=== PATIENT | female | born 1950 | race African-American/Black ===

== ENCOUNTER 2017-07-21 13:57 | Inpatient (IN) | payer MEDICARE, BC ==
[2017-07-22] MEDS ORDERED: ALBUTEROL HFA 8 GM INHALER INH PRN (13:38)
[2017-07-22] MEDS ORDERED: SENNOSIDES/DOCUSATE SODIUM UD CAPSULE PO PRN (13:40)
--- NOTE | 2017-07-22 14:43 | Rehab Evaluation ---
Patient Information - Patient Information Diagnosis: deconditioning following cardiac cath Ordered Treatment: OT Evaluate and Treat Status: Initial Evaluation Past Medical/Surgical Hx: PAST MEDICAL/SURGICAL HISTORY Past Surgical History Pacemaker 2010 Hysterectomy 1975 Breast Reduction 1990 Colon Resection 1995 Angioplasty 2007 Cardiac stent 2016 Heart Cath 2008 Bilateral Eye Cataract 2009 PMH - Respiratory Hx Respiratory Disorders Yes Hx Bronchitis Yes Hx Chronic Obstructive Yes Pulmonary Disease (COPD) PMH - Cardiovascular Hx Cardiovascular Disorders Yes Hx Hypertension Yes Hx Irregular Heartbeat Yes: Unknown PMH - Neuro Hx Neurological Disorders No PMH - GI Hx Gastrointestinal Disorders Yes Hx Gastroesophageal Reflux Yes PMH - Hx Genitourinary Disorders No PMH - Endocrine Hx Endocrine Disorders Yes Hx Diabetes Yes PMH - Musculoskeletal Hx Musculoskeletal Disorders Yes Hx Arthritis Yes: back pain, chronic PMH - Psych Hx Psychiatric Problems No PMH - Hematology/Oncology Hx Hematology/Oncology Yes Disorders Premorbid Status: Detail (Pt lives with spouse in a 1 story house with basement , she stays on the 1st floor. She has 2 steps, no railings at the entrance. She has a tub/shower combination with tub seat, no grab bars and an elevated toilet seat with a grab bar across from the toilet. She was Ind with showering and dressing, spouse was responsible for home mgmt, meal prep and laundry. Pt ambulated without an assistive device and was using 2-3 liters of oxygen at home. She has a 2 wheeled walker, commode and straight cane.) Social History: Detail (Supportive spouse) Precautions: [place], Fall - Time With Patient Total Time Spent With Patient (Min): 30 Treatment Procedures: Detail (OT eval low complexity) Subjective Information - Subjective Information Per Patient, Other (Per spouse) Objective Data - Pain Pain Present: Yes (7/10 pain in left shoulder and chest) - Mental Status Patient Orientation: Oriented x3 - Visual Perception Appears within normal limits for therapeutic activities (Pt wears glasses for reading) - ROM Not within normal limits (Jim UE AROM WNL except shoulder flexion which is limited to approx. 110 degrees.) - Strength/Tone Within normal limits (Jim UE MMT 4+/5 although she reports pain with resisted left UE motion and she had increased shortness of breath with testing.) - Coordination Appears within normal limits for therapeutic activities - Transfers Independent (Ind with sit to stand from EOB) - Balance Balance Sitting: Good Balance Standing: Fair - Sensation Intact - Gait Detail (Pt ambulated in hallway with CG assist and 3 liters of oxygen. She became short of breath with ambulation.) - ADL's/IADL's Detail (Pt reports she is able to dress self although she is very slow due to fatigue. She has been unable to shower.) Therapy Assessment - Therapy Assessment Detail (Pt presents with decreased Ind with self cares and decreased endurance for ADLs and functional mobility.) Problem List - Problem List Occupational Therapy Problem List: Detail (1. Decreased Ind with showering/ dressing activity tolerance. 2. Decreased endurance for functional mobility and ADLs.) Goals - Goals Occupational Therapy Goals: 1. Pt will be safe and Ind with total body dressing using energy conservation techniques. 2. Pt will be safe and Ind with showering in sitting using energy conservation techniques. 3. Pt will demonstrate improved endurance to allow safe and Ind functional mobiity and ADLs. Prognosis - Prognosis Good Plan - Plan Occupational Therapy Plan: OT 2-4 times per week to address safety, Ind and activity tolerance to allow safe return home with spouse.
--- NOTE | 2017-07-22 14:45 | Rehab Evaluation ---
Patient Information - Patient Information Diagnosis: Deconditioning following cath. Ordered Treatment: PT Evaluate and Treat Status: Initial Evaluation History: Detail (The patient underwent a cath. for placement of a stent @ [facility] . The patient was admitted to [facility] 2 after discharge from [facility] with complaints of chest pain . The patient was transferred to [facility] Swing Bed unit for Rehab.) Past Medical/Surgical Hx: PAST MEDICAL/SURGICAL HISTORY Past Surgical History Pacemaker 2010 Hysterectomy 1975 Breast Reduction 1990 Colon Resection 1995 Angioplasty 2007 Cardiac stent 2015 Heart Cath 2007 Bilateral Eye Cataract 2008 PMH - Respiratory Hx Respiratory Disorders Yes Hx Bronchitis Yes Hx Chronic Obstructive Yes Pulmonary Disease (COPD) PMH - Cardiovascular Hx Cardiovascular Disorders Yes Hx Hypertension Yes Hx Irregular Heartbeat Yes: Unknown PMH - Neuro Hx Neurological Disorders No PMH - GI Hx Gastrointestinal Disorders Yes Hx Gastroesophageal Reflux Yes PMH - Hx Genitourinary Disorders No PMH - Endocrine Hx Endocrine Disorders Yes Hx Diabetes Yes PMH - Musculoskeletal Hx Musculoskeletal Disorders Yes Hx Arthritis Yes: back pain, chronic PMH - Psych Hx Psychiatric Problems No PMH - Hematology/Oncology Hx Hematology/Oncology Yes Disorders Premorbid Status: Detail (The patient was ambulatory household distances without device with use of O2.) Social History: Detail (The patient lives with spouse in a one story home with a basement with 2 steps without a railing at the enterance. The patient's bathroom is equipped with a tub/shower combination with grab bars and a standard toilet with a grab bar. The patient has a 2 wheeled walker, commode and standard cane and home O2.) Precautions: [place], Fall - Time With Patient Total Time Spent With Patient (Min): 30 Treatment Procedures: Detail (PT Initial Evaluation) Subjective Information - Subjective Information Per Patient (The patient had complaints of L buttock region pain with ambulation. The patient did not rate her pain using 0-10 pain scale. The patient reports she has fallen 3 times recently.) Objective Data - Mental Status Patient Orientation: Oriented x3 - Visual Perception Appears within normal limits for therapeutic activities - Strength/Tone Within normal limits (The patient's LE AROM is WFL.) - Bed Mobility Needs Assist (The patient's bed mobility was not assessed, (patient was sitting up on the edge on the bed).) - Transfers Independent (The patient was indpendent with sit to and from stand transfer.) - Balance Balance Sitting: Good Balance Standing: Fair (The patient's balance was not formally tested using an Objective balance test however occasional stagger steps were noted when ambulating.) - Gait Detail (The patient ambulated without assistive device a distance of 57 feet x 1 with CG and 3 L of O2. The patient exhibited shortness of breath with ambulation. The patient's ait pattern was charecterized by decreased stride length, side to side weight shift, wide of support and occasional stagger step.) Therapy Assessment - Therapy Assessment Detail (The patient has decreased LE strength, balance deficits and decreased ability to complete sustained physical activity.)
[2017-07-22] MEDS: NOVOLOG FLEXPEN (INSULIN ASPART) 100 UNITS/ML SQ SCH ×2 (16:02→18:02)
--- NOTE | 2017-07-22 16:13 | Rehab Evaluation ---
Patient Information - Patient Information Diagnosis: Deconditioning following cath. Ordered Treatment: PT Evaluate and Treat History: Detail (The patient underwent a cath. for placement of a stent @ [facility] . The patient was admitted to [facility] 2 after discharge from [facility] with complaints of chest pain . The patient was transferred to [facility] Swing Bed unit for Rehab.) Past Medical/Surgical Hx: PAST MEDICAL/SURGICAL HISTORY Past Surgical History Pacemaker 2010 Hysterectomy 1975 Breast Reduction 1990 Colon Resection 1995 Angioplasty 2007 Cardiac stent 2015 Heart Cath 2007 Bilateral Eye Cataract 2008 PMH - Respiratory Hx Respiratory Disorders Yes Hx Bronchitis Yes Hx Chronic Obstructive Yes Pulmonary Disease (COPD) PMH - Cardiovascular Hx Cardiovascular Disorders Yes Hx Hypertension Yes Hx Irregular Heartbeat Yes: Unknown PMH - Neuro Hx Neurological Disorders No PMH - GI Hx Gastrointestinal Disorders Yes Hx Gastroesophageal Reflux Yes PMH - Hx Genitourinary Disorders No PMH - Endocrine Hx Endocrine Disorders Yes Hx Diabetes Yes PMH - Musculoskeletal Hx Musculoskeletal Disorders Yes Hx Arthritis Yes: back pain, chronic PMH - Psych Hx Psychiatric Problems No PMH - Hematology/Oncology Hx Hematology/Oncology Yes Disorders Premorbid Status: Detail (The patient was ambulatory household distances without device with use of O2.) Social History: Detail (The patient lives with spouse in a one story home with a basement with 2 steps without a railing at the enterance. The patient's bathroom is equipped with a tub/shower combination with grab bars and a standard toilet with a grab bar. The patient has a 2 wheeled walker, commode and standard cane and home O2.) Precautions: [place], Fall - Time With Patient Total Time Spent With Patient (Min): 30 Treatment Procedures: Detail (Initial Evaluation) Subjective Information - Subjective Information Per Patient (The patient had complaints of L buttock region with ambulation. The patient did not rate her pain using 0-10 pain scale. The patient reports she has fallen 3 times recently.) Objective Data - Mental Status Patient Orientation: Oriented x3 - Visual Perception Appears within normal limits for therapeutic activities - ROM Within normal limits - Strength/Tone Not within normal limits (The patient's L LE strength was 4/5 in hip and knee musculature and 4+/5 in ankle musculature. R LE strength was 4+ to 5/5.) - Bed Mobility Independent (Bed mobility was not assessed. The patient was sitting on the edge of the bed.) - Transfers Independent (Independent sit to and from stand transfer.) - Balance Balance Sitting: Good Balance Standing: Fair (The patient's balance was not formally tested using an objective balance test however, occasional stagger steps were noted when ambulating.) - Gait Detail (The patient ambulated without assistive device a distance of 57 feet with CG of 1 and 3 L of O2. The patient exhibited shortness of breath with ambulation. The patient's gait pattern was characterized by decreased stride length, decreased heel to toe weight shift and a wide base of support and occasional stagger steps.) Therapy Assessment - Therapy Assessment Detail (The patient has decreased LE strength, balance deficits and decreased ability to complete sustained physical activity. Feel the patient is a good rehab candidate to improve her fuctional level.) Problem List - Problem List Physical Therapy Problem List: Detail (1) Decreased balance 2) Decreased LE strength primarily R LE 3) Decreased ability to complete sustained physical activity) Occupational Therapy Problem List: Detail (1. Decreased Ind with showering/ dressing activity tolerance. 2. Decreased endurance for functional mobility and ADLs.) Goals - Goals Physical Therapy Goals: 1) Assess bed mobility. 2) Assess the patient's balance using an Objective balance scale. 3) The patient will ambulate on 3 steps with supervision/independent. 4) The patient will ambulate with or without assistive device distances of 150 feet x 1 with O2. 5) Increase LE strength 1/3 muscle grade to improve stability of gait. 6) The patient will be independent with all transfers and bed mobility Occupational Therapy Goals: 1. Pt will be safe and Ind with total body dressing using energy conservation techniques. 2. Pt will be safe and Ind with showering in sitting using energy conservation techniques. 3. Pt will demonstrate improved endurance to allow safe and Ind functional mobiity and ADLs. Plan - Plan Physical Therapy Plan: PT 1-2 times a day for gait training, transfer training, balance and lower extremity strengthening exercises. Occupational Therapy Plan: OT 2-4 times per week to address safety, Ind and activity tolerance to allow safe return home with spouse.
[2017-07-22] MEDS: POTASSIUM CHLORIDE 10 MEQ TAB PO SCH (21:11)
[2017-07-22] MEDS: METOPROLOL TART 50 MG TABLET PO SCH (21:11)
[2017-07-22] MEDS: ATORVASTATIN 20 MG TABLET PO SCH (21:11)
[2017-07-22] MEDS: LORATADINE 10 MG TABLET PO SCH (21:11)
[2017-07-22] MEDS: BRILINTA 90 MG PO SCH (21:12)
[2017-07-22] MEDS: GABAPENTIN 300 MG CAPSULE PO SCH (21:12)
[2017-07-22] MEDS: PANTOPRAZOLE SODIUM 40 MG TABLET PO SCH (21:12)
[2017-07-23 06:43] LABS: BASO % 0.5 % (0-6); EOS % 3.6 % (0-6); GRAN % 72.7 % (47-80); HEMATOCRIT 28.4 % (35.0-47.0); HEMOGLOBIN 8.8 gm/dl (11.6-16.0); MEAN CELL VOLUME 94.4 fl (81-97); MEAN CORPUSCULAR HEMOGLOBIN 29.2 pg (27-33); MONO % 8.2 % (0-9); PLATELET COUNT 378 K/uL (130-400); RED BLOOD COUNT 3.01 M/uL (3.80-5.40); RED CELL DISTRIBUTION WIDTH 16.1 % (11.5-14.5); WHITE BLOOD COUNT W/O DIFF 8.6 K/uL (4.2-12.2)
[2017-07-23 06:58] LABS: CREATININE 2.3 mg/dL (0.5-0.9)
[2017-07-23] MEDS: NOVOLOG FLEXPEN (INSULIN ASPART) 100 UNITS/ML SQ SCH ×3 (08:42→17:42)
[2017-07-23] MEDS: POTASSIUM CHLORIDE 10 MEQ TAB PO SCH ×2 (10:09→21:19)
[2017-07-23] MEDS: CHOLECALCIFEROL 1,000 UNIT TABLET PO SCH (10:10)
[2017-07-23] MEDS: FUROSEMIDE 40 MG TABLET PO SCH (10:10)
[2017-07-23] MEDS: GABAPENTIN 300 MG CAPSULE PO SCH ×2 (10:10→21:19)
[2017-07-23] MEDS: FERROUS SULFATE 325 MG TAB PO SCH (10:10)
[2017-07-23] MEDS: ASPIRIN 81 MG TABEC PO SCH (10:11)
[2017-07-23] MEDS: METOPROLOL TART 50 MG TABLET PO SCH ×2 (10:11→21:19)
[2017-07-23] MEDS: LEVEMIR FLEXTOUCH 100 UNIT/ML INSULIN PEN SQ SCH (10:14)
[2017-07-23] MEDS: BRILINTA 90 MG PO SCH ×2 (10:17→21:21)
--- NOTE | 2017-07-23 15:15 | History & Physical ---
History of Present Illness - Date Date of Service for History & Physical: 07/23/17 - History of Present Illness Admitting Diagnosis: Deconditioning following Cardiac Cath History of Present Illness: 67yo female admitted to [facility] for deconditioning following heart cath. She has history of CKD 3-4, CAD s/p multiple stents, pacemaker, 3 PE's. 1 DVT on life long anticoagulation therapy with coumadin, IVC filter, CHF, Takotsubo, CVA, COPD, afib, htn, hlp, fibromyalgia, DM. Patient was admitted to [facility] 07/13/17- 07/22/17 for chest pain sent there by her dean. She had undergone heart cath on 07-08-[address] Kiser and CABG was recommended at that time but she was not a surgical candidate, but eventually underwent heart cath with PCI and 2 TAMIKO. When she presented to [facility], she was found to be anemic and received 2 units on 07/14/17. She had occult positive stools so her coumadin was discontinued, asa and brilinta continued. She had elevated troponin I at 0.52. was evaluated by cardiology who felt her troponin elevated was 2/2 demand ischemia from anemia and renal disease. Nephro and GI evaluated patient. Did not recommend scope but did recommend PPI and restarting her coumadin in 2-4 weeks if hgb remains stable. 07/23/17- Patient states she is doing ok today. She has had some stomach cramping and an episode of sharp chest pain this morning. she has long history of chronic , intermittent, stomach pain. She does report that she has had frequent, loose, green, foul stool since she was in [facility]. She is attributing this to the iron supplements she was getting three times a day. She denies shortness of breath, vision change. she got up to walk today and says she still feels weak. Resident Service Coordinator: Soheila [facility] - Cognitive Patterns Orientation: Oriented x3 - Communication Preferred Language?: Swedish Application Development Intern Required: No Level of Education: College Preferred Method of Learning: Seeing, Doing, Reading Comprehension Ability: No Impairment Able to Read: Yes Able to Write: Yes Select best description of speech pattern: Clear Speech Ability to express ideas and wants: Understood Understanding verbal content: Understands - Psychosocial Well-Being Usual Living Arrangement: Spouse - Physical Functioning Activity Level: Up as tolerated ROM Ability: Moves all extremities Assistive Devices: None Activity Level Comment: Hosp. walker in room Ambulation Ability: Independent Bed Mobility: Independent Transfer Ability: Independent Bathing Ability: Independent Personal Hygiene: Independent Dressing Ability: Independent Eating (Feeding) Ability: Independent Toileting Ability: Independent Administer Own Medication: Independent Care Ability Comment: Pt states she can perform ADL's but she gets winded and takes her a long time. - Continence Bowel Pattern: Diarrhea Bladder Pattern: Normal, Urgency - Dental Status Unable to examine: No Broken or loosely fitting full or partial dentures: No No natural teeth or tooth fragment(s) (edentulous): No Abnormal mouth tissue (ulcers, masses, oral lesions, etc.): No Obvious or likely cavity or broken natural teeth: No Inflamed or bleeding gums or loose natural teeth: No Mouth/facial pain, discomfort or difficulty chewing: No - Nutrition Screening Poor oral intake > 1 week: Yes Unplanned weight loss in specified time frame: No Nutrition Support via tube feedings or parenteral nutrition: No Pressure Ulcer: No Significantly underweight define as BMI <18.5 kg/m2: No Albumin <2.5mg/dL: No Persistent nausea/vomiting/diarrhea >3 days: No Difficulty chewing/swallowing/mouth sores: No Admitting Diagnosis: No Nutrition Risk Score: High Risk Review of Systems Constitutional: Denies: Chills, Fever, Weakness Eyes: Denies: Vision change ENT: Denies: Congestion, Ear pain Respiratory: Denies: Cough, Dyspnea Cardiovascular: Denies: Dyspnea on exertion, Edema, Orthopnea Past Medical History - SOCIAL HISTORY Smoking Status: Never smoker Alcohol Use: None Drug use: None - SURGICAL HISTORY Past Surgical History: Pacemaker 2010. Hysterectomy 1975. Breast Reduction 1990. Colon Resection 1995. Angioplasty 2007. Cardiac stent 2015. Heart Cath 2007. Bilateral Eye Cataract 2009 - RESPIRATORY Hx Respiratory Disorders: Yes Hx Bronchitis: Yes Hx COPD: Yes - CARDIOVASCULAR Hx Cardio Disorders: Yes Hx Hypertension: Yes - NEURO Hx Neuro Disorders: No - GI Hx GI Disorders: Yes Hx Reflux: Yes - Hx Genitourinary Disorders: No - ENDOCRINE Hx Endocrine Disorders: Yes Hx Diabetes: Yes - MUSCULOSKELETAL Hx Musculoskeletal Disorders: Yes Hx Arthritis: Yes (back pain, chronic) - PSYCH Hx Psych Problems: No - HEMATOLOGY/ONCOLOGY Hx Hematology/Oncology Disorders: Yes Hx Blood Transfusions: Yes Family Medical History Any Significant Family History?: Yes Family Hx Comment (NOT TO BE USED IN PLACE OF ITEMS BELOW): Unknown Hx Alcohol Use: Father Hx Cancer: Mother Hx Depression: Mother Hx Diabetes: Father, Mother Hx Heart Disease: Father, Mother, Brother/Sister Hx HTN: Father, Mother Hx Kidney Disease: Mother Hx Liver Disease: Father Hx Resp Disorders: Mother Hx Seizures: Brother/Sister Hx Stroke: Children H&P Meds/Allergies - Allergies Allergies: Allergies Allergy/AdvReac Type Severity Reaction Status Date / Time diazepam [From VALIUM] Allergy Unknown ALTERED Verified 02/18/16 12:26 MENTAL STATUS erythromycin lactobionate Allergy Unknown SWELLING Verified 02/18/16 12:26 [From ERYTHROCIN] OF THE TONGUE oxycodone HCl Allergy Unknown BEHAVIORAL Verified 02/18/16 12:26 [From OXYCONTIN] CHANGES adhesive Allergy RASH Verified 02/18/16 12:26 coconut oil Allergy RASH Verified 02/18/16 12:26 levofloxacin [From Levaquin] Allergy HIVES Verified 02/18/16 12:26 sucralose Allergy HIVES Verified 07/22/17 13:46 [From Splenda (sucralose)] carvedilol AdvReac TACHYCARDIA Verified 02/18/16 12:26 codeine AdvReac BEHAVIORAL Verified 02/18/16 12:26 CHANGES - Home Medications Home Medications Medication Instructions Recorded Confirmed Last Taken Atorvastatin Calcium [Lipitor] 10 mg PO QHS 07/22/17 07/22/17 Unknown Cetirizine HCl [Zyrtec] 10 mg PO QHS 07/22/17 07/22/17 Unknown Esomeprazole Magnesium [Nexium] 40 mg PO QHS 07/22/17 07/22/17 Unknown Gabapentin [Neurontin] 600 mg PO BID 07/22/17 07/22/17 Unknown Hydrocodone/Acetaminophen [[place] 1 each PO Q6H PRN 07/22/17 07/22/17 Unknown 5-325 Tablet] Potassium Chloride [Klor-Con 10] 10 meq PO BID 07/22/17 07/22/17 Unknown - Active Medications Active Medications: Current Medications Acetaminophen (Tylenol 325mg) 650 mg PO Q4H PRN PRN Reason: MILD PAIN Hydrocodone Bitart/Acetaminophen ([place] 5mg/325mg) 1 each PO Q6H PRN PRN Reason: MODERATE TO SEVERE PAIN Albuterol Sulfate (Ventolin Hfa) 2 puff INH Q4H PRN PRN Reason: SHORTNESS OF BREATH Aspirin (Ecotrin (Ec)) 81 mg PO DAILY [facility] Last Admin: 07/23/17 10:11 Dose: 81 mg Atorvastatin Calcium (Lipitor) 10 mg PO QHS [facility] Last Admin: 07/22/17 21:11 Dose: 10 mg Ferrous Sulfate (Iron) 325 mg PO DAILY [facility] Last Admin: 07/23/17 10:10 Dose: 325 mg Furosemide (Lasix) 40 mg PO DAILY [facility] Last Admin: 07/23/17 10:10 Dose: 40 mg Gabapentin (Neurontin) 600 mg PO BID [facility] Last Admin: 07/23/17 10:10 Dose: 600 mg Insulin Aspart (Novolog Flexpen) 4 unit SQ TIDINS [facility] Last Admin: 07/23/17 08:42 Dose: 4 unit Insulin Detemir (Levemir Flextouch) 10 unit SQ DAILY [facility] Last Admin: 07/23/17 10:14 Dose: 10 unit Loratadine (Claritin) 10 mg PO QHS [facility] Last Admin: 07/22/17 21:11 Dose: 10 mg Metoprolol Tartrate (Lopressor) 50 mg PO BID [facility] Last Admin: 07/23/17 10:11 Dose: 50 mg Pantoprazole Sodium (Protonix) 40 mg PO QHS [facility] Last Admin: 07/22/17 21:12 Dose: 40 mg Patient Own Med: Brilinta 90 Mg ( Ticagrelor) 1 each PO BID [facility] Last Admin: 07/23/17 10:17 Dose: 1 each Potassium Chloride (Klor-Con) 10 meq PO BID [facility] Last Admin: 07/23/17 10:09 Dose: 10 meq Senna/Docusate Sodium (Senna Plus) 1 each PO BID PRN PRN Reason: CONSTIPATION Vitamin D (Vitamin D3) 2,000 unit PO DAILY [facility] Last Admin: 07/23/17 10:10 Dose: 2,000 unit Physical Exam - Vital Signs Vital Signs: Vital Signs - Last 24 Hrs Temp Pulse Pulse Resp BP Pulse Ox 07/23/17 10:48 61 19 94 L 07/23/17 08:00 98.5 F 61 18 147/68 91 L 07/22/17 21:20 60 94 L 07/22/17 20:00 98.7 F 60 18 142/59 100 - General General Appearance: Alert, Oriented x3, Cooperative, No acute distress - Head Head exam: Normal inspection - Eye Eye exam: Normal appearance, PERRL - ENT ENT exam: Normal exam, Mucous membranes moist, Normal external ear exam, Normal orophraynx, TM's normal bilaterally - Neck Neck exam: Normal inspection, Full ROM. negative: Tenderness - Respiratory Respiratory exam: Normal lung sounds bilaterally. negative: Respiratory distress - Cardiovascular Cardiovascular Exam: Regular rate (paced), Normal rhythm, Normal heart sounds - GI/Abdominal GI/Abdominal exam: Soft, Normal bowel sounds. negative: Tenderness - Rectal Rectal exam: Deferred - exam: Deferred - Extremities Extremities exam: Normal inspection, Full ROM, Normal capillary refill. negative: Tenderness - Back Back exam: Reports: Normal inspection, Full ROM. Denies: Muscle spasm, Rash noted, Tenderness - Neurological Neurological exam: Alert, Normal gait, Oriented X3, Reflexes normal - Psychiatric Psychiatric exam: Normal affect, Normal mood - Skin Skin exam: Dry, Intact, Warm, Other (ecchymosis) H&P Results - Labs Result Diagrams: 07/23/17 06:15 07/23/17 06:15 Labs Last 24 Hours: Laboratory Results - last 24 hr 07/22/17 07/22/17 07/22/17 16:01 17:28 22:00 WBC RBC Hgb Hct MCV MCH MCHC RDW Plt Count MPV Gran % Lymphocytes % Monocytes % Eosinophils % Basophils % Sodium Potassium Chloride Carbon Dioxide Anion Gap BUN Creatinine Estimated GFR POC Glucose 254 H 191 H 188 H Random Glucose Calcium Troponin T 07/23/17 07/23/17 07/23/17 06:15 06:15 10:23 WBC 8.6 RBC 3.01 L Hgb 8.8 L Hct 28.4 L MCV 94.4 MCH 29.2 MCHC 31.0 L RDW 16.1 H Plt Count 378 MPV 9.0 Gran % 72.7 Lymphocytes % 15.0 L Monocytes % 8.2 Eosinophils % 3.6 Basophils % 0.5 Sodium 140 Potassium 4.0 Chloride 98 Carbon Dioxide 28.0 Anion Gap 14.0 BUN 31 H Creatinine 2.3 H Estimated GFR 22 POC Glucose Random Glucose 148 H Calcium 8.5 L Troponin T Cancelled 07/23/17 07/23/17 11:13 12:18 WBC RBC Hgb Hct MCV MCH MCHC RDW Plt Count MPV Gran % Lymphocytes % Monocytes % Eosinophils % Basophils % Sodium Potassium Chloride Carbon Dioxide Anion Gap BUN Creatinine Estimated GFR POC Glucose 212 H Random Glucose Calcium Troponin T 0.042 H Discharge Potential - Discharge Needs Community Services Used Prior to Admission: Home Health Aide Patient Discharge Plan Description: Return Home Community Services Needed at Discharge: Home Health Aide Plan - Swing Bed Certification Initial Certification Due: 07/22/17 14 Day Re-Cert Due: 08/05/17 44 Day Re-Cert Due: 09/04/17 74 Day Re-Cert Due: 10/04/17 - Detailed Diagnosis and Plan (1) Physical deconditioning Current Visit: Yes Status: Acute Base Code: R53.81 - OTHER MALA[place] Comment : 07/23/17-patient deconditioned 2/2 prolonged hospitalization, anemia, and recent stenting. -Patient will continue to [facility] with PT/OT M-F for strength and conditioning (2) Presence of stent in coronary artery in patient with coronary artery disease Current Visit: Yes Status: Acute Base Code: I25.10 - ATHSCL HEART DISEASE OF [place] CORONARY ARTERY W/O ANG PCTRS; Z95.5 - PRESENCE OF CORONARY ANGIOPLASTY IMPLANT AND GRAFT Comment: 07/23/17- stable. underwent heart cath with PCI with 2DES using DK Crush technique and LV impella device at [facility] on 07/08/18. She was admitted to [facility] for angina on 07/14/18 with Troponin-I elevated at 0.52. Evaluated by cardiology, who felt the elevation was due to demand ischemia 2/2 anemia and CKD. -continue DAP. -continue lipitor 10mg, lasix 40mg, and lopressor 50mg bid. -patient had one episode of chest discomfort this morning that resolved. EKG performed without ischemic changes. 1st set of TroponinT was indeterminate. May still be elevated from previous week. will trend. (3) Anemia Current Visit: Yes Status: Acute Qualifiers: Anemia type: due to chronic kidney disease Chronic kidney disease stage: stage 3 (moderate) Qualified Code(s): N18.3 - Chronic kidney disease, stage 3 (moderate); D63.1 - Anemia in chronic kidney disease; D63.1 - Anemia in chronic kidney disease Base Code: D64.9 - ANEMIA, UNSPECIFIED Comment: 07/23/17- stable. hgb up to 8.8 today from 8.5. continue ferrous sulfate 325mg po once daily as she had been taking it at [facility] -continuing DAP but holding coumadin as recommended for 2 weeks -repeat CBC q2 weeks (4) CKD (chronic kidney disease) Current Visit: Yes Status: Acute Qualifiers: Chronic kidney disease stage: stage 3 (moderate) Qualified Code(s): N18.3 - Chronic kidney disease, stage 3 (moderate) Base Code: N18.9 - CHRONIC KIDNEY DISEASE, UNSPECIFIED Comment: 07/23/17- stable. BUN/CR 27 and 2.02 with eGFR of 30 yesterday at [facility], today 31/2.3 respectively with egfr of 22. 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 She was continued on her DAP and it was recommended that she restart her coumadin in 2 weeks. She has IVC filter in place. There was also a recommendation that she could start heparin 5000units IM BID for prophylaxis in the interim, but will monitor hgb to ensure no further bleeding. -encourage ambulation with PT/OT (6) Diarrhea Current Visit: Yes Status: Acute Base Code: R19.7 - DIARRHEA, UNSPECIFIED Comment: 07/23/17- frequent, loose, foul smelling green stool. Has been recently admitted to hospital. will order c.diff stool study. (7) Full code status Current Visit: Yes Status: Acute Base Code: Z78.9 - OTHER SPECIFIED HEALTH STATUS Comment: 07/23/17- patient is full code status. Discussed in detail with patient and her with dpoa what constitutes rescuscitation. They agree that she is a full code. She does not wish to be on life support if it comes to that.
[2017-07-23] MEDS: ACETAMINOPHEN 325 MG TAB PO PRN (16:12)
[2017-07-23] MEDS: PANTOPRAZOLE SODIUM 40 MG TABLET PO SCH (21:19)
[2017-07-23] MEDS: ATORVASTATIN 20 MG TABLET PO SCH (21:19)
[2017-07-23] MEDS: LORATADINE 10 MG TABLET PO SCH (21:19)
[2017-07-24] MEDS: HYDROCODONE/APAP 5/325MG TABLET PO PRN (00:41)
[2017-07-24] MEDS: NOVOLOG FLEXPEN (INSULIN ASPART) 100 UNITS/ML SQ SCH ×4 (10:04→18:39)
[2017-07-24] MEDS: GABAPENTIN 300 MG CAPSULE PO SCH ×2 (10:19→21:09)
[2017-07-24] MEDS: CHOLECALCIFEROL 1,000 UNIT TABLET PO SCH (10:20)
[2017-07-24] MEDS: FUROSEMIDE 40 MG TABLET PO SCH (10:20)
[2017-07-24] MEDS: FERROUS SULFATE 325 MG TAB PO SCH (10:20)
[2017-07-24] MEDS: POTASSIUM CHLORIDE 10 MEQ TAB PO SCH ×2 (10:20→21:10)
[2017-07-24] MEDS: ASPIRIN 81 MG TABEC PO SCH (10:21)
[2017-07-24] MEDS: METOPROLOL TART 50 MG TABLET PO SCH ×2 (10:21→21:10)
[2017-07-24] MEDS: LEVEMIR FLEXTOUCH 100 UNIT/ML INSULIN PEN SQ SCH (10:25)
[2017-07-24] MEDS: BRILINTA 90 MG PO SCH ×2 (10:39→21:12)
[2017-07-24] MEDS: PANTOPRAZOLE SODIUM 40 MG TABLET PO SCH (21:09)
[2017-07-24] MEDS: ATORVASTATIN 20 MG TABLET PO SCH (21:09)
[2017-07-24] MEDS: LORATADINE 10 MG TABLET PO SCH (21:10)
[2017-07-25] MEDS: POTASSIUM CHLORIDE 10 MEQ TAB PO SCH ×2 (09:34→21:08)
[2017-07-25] MEDS: LEVEMIR FLEXTOUCH 100 UNIT/ML INSULIN PEN SQ SCH (09:34)
[2017-07-25] MEDS: ASPIRIN 81 MG TABEC PO SCH (09:34)
[2017-07-25] MEDS: METOPROLOL TART 50 MG TABLET PO SCH ×2 (09:34→21:08)
[2017-07-25] MEDS: FERROUS SULFATE 325 MG TAB PO SCH (09:34)
[2017-07-25] MEDS: CHOLECALCIFEROL 1,000 UNIT TABLET PO SCH (09:34)
[2017-07-25] MEDS: GABAPENTIN 300 MG CAPSULE PO SCH ×2 (09:34→21:08)
[2017-07-25] MEDS: FUROSEMIDE 40 MG TABLET PO SCH (09:34)
[2017-07-25] MEDS: NOVOLOG FLEXPEN (INSULIN ASPART) 100 UNITS/ML SQ SCH ×3 (09:35→18:05)
[2017-07-25] MEDS: BRILINTA 90 MG PO SCH ×2 (10:00→21:11)
--- NOTE | 2017-07-25 10:37 | Occupational Therapy Tx Note ---
Occupational Therapy Tx Note - Treatment Note Tolerated: Good Total Time Spent With Patient: 20 (ADL) Occupational Therapy Treatment Note: Detail (S: Pt resting in bed, reports she showered yesterday and does not want to shower today. O: Supine to sit Indly, doffed PJ gown Indly, donned PJ bottoms and PJ top Indly. Pt using 3 liters of oxygen and became slightly short of breath with activity. Pt cued to complete pursed lip breathing and she was able to perform this but reports it gives her a headache and makes her dizzy. Pt ambulated 100 feet with 3 liters of oxygen with SBA and with cues for pursed lip breathing as she became short of breath with ambulation. Pt left up in chair. A: Ind with total body dressing, shortness of breath with activity.) Occupational Therapy Problem List: Detail (1. Decreased Ind with showering/ dressing activity tolerance. 2. Decreased endurance for functional mobility and ADLs.) Occupational Therapy Goals: 1. Pt will be safe and Ind with total body dressing using energy conservation techniques. 2. Pt will be safe and Ind with showering in sitting using energy conservation techniques. 3. Pt will demonstrate improved endurance to allow safe and Ind functional mobiity and ADLs. Prognosis: Good Occupational Therapy Plan: OT 2-4 times per week to address safety, Ind and activity tolerance to allow safe return home with spouse.
--- NOTE | 2017-07-25 14:45 | Physical Therapy Tx Note ---
Physical Therapy Tx Note - Treatment Note Tolerated: Good Total Time Spent With Patient: 30 Physical Therapy Tx Note: Detail (The patient was in bed when PT arrived. The patient ambulated without device and 3L of O2 a distance of 104 feet x 1 with numerous rest periods. The patient completed the following LE exercises: resisted T-band hip abduction and hamstring curls x 10 reps, ankle pumps, LAQ, hip marching and adductor squeezes x 10 reps. Standing balance exercise: Standing with wide base of support with perturbations. The patient complained of aching in both LE's.) Physical Therapy Problem List: Detail (1) Decreased balance 2) Decreased LE strength primarily R LE 3) Decreased ability to complete sustained physical activity) Physical Therapy Goals: 1) Assess bed mobility. 2) Assess the patient's balance using an Objective balance scale. 3) The patient will ambulate on 3 steps with supervision/independent. 4) The patient will ambulate with or without assistive device distances of 150 feet x 1 with O2. 5) Increase LE strength 1/3 muscle grade to improve stability of gait. 6) The patient will be independent with all transfers and bed mobility Physical Therapy Plan: PT 1-2 times a day for gait training, transfer training, balance and lower extremity strengthening exercises.
[2017-07-25] MEDS: ATORVASTATIN 20 MG TABLET PO SCH (21:08)
[2017-07-25] MEDS: LORATADINE 10 MG TABLET PO SCH (21:09)
[2017-07-25] MEDS: PANTOPRAZOLE SODIUM 40 MG TABLET PO SCH (21:11)
[2017-07-25] MEDS: HYDROCODONE/APAP 5/325MG TABLET PO PRN (22:29)
[2017-07-26] MEDS: LEVEMIR FLEXTOUCH 100 UNIT/ML INSULIN PEN SQ SCH (09:32)
[2017-07-26] MEDS: NOVOLOG FLEXPEN (INSULIN ASPART) 100 UNITS/ML SQ SCH ×3 (09:34→17:48)
[2017-07-26] MEDS: FERROUS SULFATE 325 MG TAB PO SCH (09:38)
[2017-07-26] MEDS: ASPIRIN 81 MG TABEC PO SCH (09:38)
[2017-07-26] MEDS: CHOLECALCIFEROL 1,000 UNIT TABLET PO SCH (09:38)
[2017-07-26] MEDS: BRILINTA 90 MG PO SCH ×2 (09:38→22:37)
[2017-07-26] MEDS: GABAPENTIN 300 MG CAPSULE PO SCH ×2 (09:38→22:36)
[2017-07-26] MEDS: FUROSEMIDE 40 MG TABLET PO SCH (09:38)
[2017-07-26] MEDS: METOPROLOL TART 50 MG TABLET PO SCH ×2 (09:38→22:36)
[2017-07-26] MEDS: POTASSIUM CHLORIDE 10 MEQ TAB PO SCH ×2 (09:38→22:37)
--- NOTE | 2017-07-26 12:20 | Physical Therapy Tx Note ---
Physical Therapy Tx Note - Treatment Note Total Time Spent With Patient: 30 Physical Therapy Tx Note: Detail (The patient was in chair when PT arrived. The patient ambulated without device and 3L of O2 104 feet x 1 with supervision for safety and 1 short rest period. The patient ambulated on 3 steps with use of 2 railings with 3 L of O2 and using a reciprocal gait pattern with supervison for safety. The patient completed balance exercises: standing with wide base of support, hanging onto bar walking sideways and backwards. The patient was short of breath with activity and was using pursed lip breathing techniques appriopriately.) Physical Therapy Problem List: Detail (1) Decreased balance 2) Decreased LE strength primarily R LE 3) Decreased ability to complete sustained physical activity) Physical Therapy Goals: 1) Assess bed mobility. 2) Assess the patient's balance using an Objective balance scale. 3) The patient will ambulate on 3 steps with supervision/independent. 4) The patient will ambulate with or without assistive device distances of 150 feet x 1 with O2. 5) Increase LE strength 1/3 muscle grade to improve stability of gait. 6) The patient will be independent with all transfers and bed mobility Physical Therapy Plan: PT 1-2 times a day for gait training, transfer training, balance and lower extremity strengthening exercises.
--- NOTE | 2017-07-26 15:08 | Occupational Therapy Tx Note ---
Occupational Therapy Tx Note - Treatment Note Tolerated: Good Total Time Spent With Patient: 30 (ther ex) Occupational Therapy Treatment Note: Detail (S: Pt resting in bed, ready for OT. O: Supine to sit with min assist from spouse. Sit to stand and amb 10 feet to wheelchair with 3 liters oxygen and SBA. Pt transported to rehab gym via wheelchair. Pt completed higinio UE overhead reaching activity with resisted clothespins with continued education for pursed lip breathing. Pt completed higinio hand strengthening with red theraputty for enrollment coordinator, rolling and pinch x 5 min each hand. Passive pulleys for shoulder flexion, ab/adduction and horiz. ab/ adduction x 15 reps each. Scapular retraction in sitting x 5 reps with verbal cues. Pt transported back to room via wheelchair, sit to stand and amb to EOB 15 feet with CG assist. Sit to supine Indly. A: Pt reports higinio UE fatigue and shoulder pain with overhead activity, shortness of breath continues with activity) Occupational Therapy Problem List: Detail (1. Decreased Ind with showering/ dressing activity tolerance. 2. Decreased endurance for functional mobility and ADLs.) Occupational Therapy Goals: 1. Pt will be safe and Ind with total body dressing using energy conservation techniques. 2. Pt will be safe and Ind with showering in sitting using energy conservation techniques. 3. Pt will demonstrate improved endurance to allow safe and Ind functional mobiity and ADLs. Prognosis: Good Occupational Therapy Plan: OT 2-4 times per week to address safety, Ind and activity tolerance to allow safe return home with spouse.
[2017-07-26] MEDS: ACETAMINOPHEN 325 MG TAB PO PRN (15:46)
[2017-07-26 18:03] LABS: BASO % 0.6 % (0-6); EOS % 2.8 % (0-6); GRAN % 70.4 % (47-80); HEMATOCRIT 31.3 % (35.0-47.0); LYMPH % 17.1 % (16-45); MEAN CELL VOLUME 95.4 fl (81-97); MEAN CORPUSCULAR HEMOGLOBIN 30.4 pg (27-33); MEAN CORPUSCULAR HGB CONC 31.9 g/dl (32-36); MONO % 9.1 % (0-9); PLATELET COUNT 397 K/uL (130-400); RED BLOOD COUNT 3.28 M/uL (3.80-5.40); RED CELL DISTRIBUTION WIDTH 17.1 % (11.5-14.5); WHITE BLOOD COUNT W/O DIFF 10.2 K/uL (4.2-12.2)
[2017-07-26 18:09] LABS: BILIRUBIN,TOTAL 0.4 mg/dL (0.2-1.0); CREATININE 2.7 mg/dL (0.5-0.9)
[2017-07-26 18:10] LABS: TOTAL PROTEIN 7.6 g/dL (6.6-8.7)
[2017-07-26 18:15] LABS: ALB/GLOB RATIO 0.9 (1.1-1.8); ALBUMIN 3.7 g/dL (4.0-5.0)
[2017-07-26] MEDS: LORATADINE 10 MG TABLET PO SCH (22:36)
[2017-07-26] MEDS: ATORVASTATIN 20 MG TABLET PO SCH (22:36)
[2017-07-26] MEDS: MAGNESIUM OXIDE 400 MG TABLET PO SCH (22:36)
[2017-07-26] MEDS: PANTOPRAZOLE SODIUM 40 MG TABLET PO SCH (22:37)
[2017-07-26] MEDS: HYDROCODONE/APAP 5/325MG TABLET PO PRN (22:37)
[2017-07-27] MEDS: NOVOLOG FLEXPEN (INSULIN ASPART) 100 UNITS/ML SQ SCH ×3 (07:49→17:26)
[2017-07-27] MEDS: LEVEMIR FLEXTOUCH 100 UNIT/ML INSULIN PEN SQ SCH (09:59)
[2017-07-27] MEDS: GABAPENTIN 300 MG CAPSULE PO SCH ×2 (10:02→22:00)
[2017-07-27] MEDS: MAGNESIUM OXIDE 400 MG TABLET PO SCH ×2 (10:02→22:00)
[2017-07-27] MEDS: ASPIRIN 81 MG TABEC PO SCH (10:02)
[2017-07-27] MEDS: METOPROLOL TART 50 MG TABLET PO SCH ×2 (10:02→22:00)
[2017-07-27] MEDS: POTASSIUM CHLORIDE 10 MEQ TAB PO SCH ×2 (10:02→21:58)
[2017-07-27] MEDS: CHOLECALCIFEROL 1,000 UNIT TABLET PO SCH (10:02)
[2017-07-27] MEDS: FERROUS SULFATE 325 MG TAB PO SCH (10:02)
[2017-07-27] MEDS: BRILINTA 90 MG PO SCH ×2 (10:04→22:01)
--- NOTE | 2017-07-27 10:34 | Occupational Therapy Tx Note ---
Occupational Therapy Tx Note - Treatment Note Tolerated: Good Total Time Spent With Patient: 35 (ADL) Occupational Therapy Treatment Note: Detail (S: Pt resting in bed. O: Supine to sit Indly. Sit to stand and amb to shower with SBA and 3 liters of oxygen. Pt doffed PJ gown Indly in standing. Pt completed showering in sitting and standing using hand held shower and grab bar. Dried self Indly in sitting and standing. Pt donned PJ top and PJ bottom Indly, donned slip on slippers Indly. Pt amb to sink and completed denture care Indly. Amb to EOB with SBA. Reviewed energy conservation techniques for washing dishes and self cares, pt verbalizes learning. A: Pt Ind with showering and dressing in sitting and standing using hand held shower and grab bar. She became short of breath throughout activity and she was encouraged to complete pursed lip breathing and utilize energy conservation techniques.) Occupational Therapy Problem List: Detail (1. Decreased Ind with showering/ dressing activity tolerance. 2. Decreased endurance for functional mobility and ADLs.) Occupational Therapy Goals: 1. Pt will be safe and Ind with total body dressing using energy conservation techniques. 2. Pt will be safe and Ind with showering in sitting using energy conservation techniques. 3. Pt will demonstrate improved endurance to allow safe and Ind functional mobiity and ADLs. Prognosis: Good Occupational Therapy Plan: OT 2-4 times per week to address safety, Ind and activity tolerance to allow safe return home with spouse.
[2017-07-27] MEDS: HYDROCODONE/APAP 5/325MG TABLET PO PRN (14:46)
--- NOTE | 2017-07-27 14:52 | Physical Therapy Tx Note ---
Physical Therapy Tx Note - Treatment Note Tolerated: Good Total Time Spent With Patient: 30 Physical Therapy Tx Note: Detail (Patient states abdomen painful this afternoon. Patient transferred sit to and from stand CGA x1. Patient ambulated 230 feet without assistive with 3L portable oxygen CGA x1. Patient required several standing rest breaks due to shortness of breath and fatigue. Patient performed the following balance exercises x30 seconds each: DLS on foam , A/P weight shift on foam, lateral weight shift on foam, feet together on floor , DLS with looking side to side on floor, DLS with looking up and down on floor , and DLS with pertubations on floor. Patient required several seated rest breaks with standing balance exercises due to fatigue. Patient performed the following exercises seated on edge of bed x10 reps each: heel raises, toe raises , hip flexion, and LAQ. Patient reports LE pain with exercises and after treatment. Patient was left seated on edge of bed with call light within reach. ) Physical Therapy Problem List: Detail (1) Decreased balance 2) Decreased LE strength primarily R LE 3) Decreased ability to complete sustained physical activity) Physical Therapy Goals: 1) Assess bed mobility. 2) Assess the patient's balance using an Objective balance scale. 3) The patient will ambulate on 3 steps with supervision/independent. 4) The patient will ambulate with or without assistive device distances of 150 feet x 1 with O2. 5) Increase LE strength 1/3 muscle grade to improve stability of gait. 6) The patient will be independent with all transfers and bed mobility Prognosis: Good Physical Therapy Plan: PT 1-2 times a day for gait training, transfer training, balance and lower extremity strengthening exercises.
[2017-07-27] MEDS: LORATADINE 10 MG TABLET PO SCH (21:59)
[2017-07-27] MEDS: ATORVASTATIN 20 MG TABLET PO SCH (21:59)
[2017-07-27] MEDS: PANTOPRAZOLE SODIUM 40 MG TABLET PO SCH (22:00)
[2017-07-28] MEDS: NOVOLOG FLEXPEN (INSULIN ASPART) 100 UNITS/ML SQ SCH ×3 (07:39→17:20)
[2017-07-28] MEDS: ASPIRIN 81 MG TABEC PO SCH (09:55)
[2017-07-28] MEDS: MAGNESIUM OXIDE 400 MG TABLET PO SCH ×2 (09:55→21:38)
[2017-07-28] MEDS: GABAPENTIN 300 MG CAPSULE PO SCH ×2 (09:55→21:38)
[2017-07-28] MEDS: METOPROLOL TART 50 MG TABLET PO SCH ×2 (09:55→21:38)
[2017-07-28] MEDS: POTASSIUM CHLORIDE 10 MEQ TAB PO SCH ×2 (09:55→21:38)
[2017-07-28] MEDS: CHOLECALCIFEROL 1,000 UNIT TABLET PO SCH (09:55)
[2017-07-28] MEDS: FERROUS SULFATE 325 MG TAB PO SCH (09:55)
[2017-07-28] MEDS: BRILINTA 90 MG PO SCH ×2 (09:56→21:39)
[2017-07-28] MEDS: LEVEMIR FLEXTOUCH 100 UNIT/ML INSULIN PEN SQ SCH (09:57)
--- NOTE | 2017-07-28 11:22 | Physical Therapy Tx Note ---
Physical Therapy Tx Note - Treatment Note Tolerated: Good Total Time Spent With Patient: 30 Physical Therapy Tx Note: Detail (Patient was asleep in bed upon [employer]ING [employer] arrival, once awoken patient agreeable to exercises. Patient states LEs painful last night and today. Patient declined ambulation due to LEs feeling shaky. Patient transferred supine to sit independently. Patient performed the following exercises x10 reps each: seated marching, seated heel raises, seated toe raises, seated hamstring curls with red theraband, seated isometric hip abduction, seated hip adductor squeezes, glut squeezes, abdominal isometrics, and LAQ. Patient transferred sit to supine independently. Patient tolerated treatment well. Patient displays decreased strength and endurance with exercises. Patient required several rest breaks due to fatigue. Patient reports LEs sore and tired after treatment. Patient was left supine in bed with call light within reach.) Physical Therapy Problem List: Detail (1) Decreased balance 2) Decreased LE strength primarily R LE 3) Decreased ability to complete sustained physical activity) Physical Therapy Goals: 1) Assess bed mobility. 2) Assess the patient's balance using an Objective balance scale. 3) The patient will ambulate on 3 steps with supervision/independent. 4) The patient will ambulate with or without assistive device distances of 150 feet x 1 with O2. 5) Increase LE strength 1/3 muscle grade to improve stability of gait. 6) The patient will be independent with all transfers and bed mobility Prognosis: Good Physical Therapy Plan: PT 1-2 times a day for gait training, transfer training, balance and lower extremity strengthening exercises.
[2017-07-28] MEDS: FUROSEMIDE 40 MG TABLET PO SCH (11:53)
[2017-07-28] MEDS: HYDROCODONE/APAP 5/325MG TABLET PO PRN (11:55)
--- NOTE | 2017-07-28 14:23 | Physical Therapy Tx Note ---
Physical Therapy Tx Note - Treatment Note Tolerated: Good Total Time Spent With Patient: 30 Physical Therapy Tx Note: Detail (Patient was sleeping in bed upon [employer] arrival. Patient awoken easily and agreed to treatment. Patient transferred supine to sit independently. Patient transferred sit to and from stand SBA x1. Patient ambulated 125 feet x2 without assistive device with 3L portable oxygen CGA x1. Patient transferred sit to and from stand SBA x1. Patient performed the following exercises x30 seconds each: feet together, DLS with eyes closed, DLS with looking up and down, DLS with looking side to side, DLS with pertubations, A/P weight shift, lateral weight shift, and stride stance. Patient tolerated treatment well. Patient required several seated rest breaks with standing balance exercises due to LE fatigue. Patient tolerated treatment well. Patient reports LEs sore after treatment. Patient was left seated on edge of bed with call light within reach and dietary in the room.) Physical Therapy Problem List: Detail (1) Decreased balance 2) Decreased LE strength primarily R LE 3) Decreased ability to complete sustained physical activity) Physical Therapy Goals: 1) Assess bed mobility. 2) Assess the patient's balance using an Objective balance scale. 3) The patient will ambulate on 3 steps with supervision/independent. 4) The patient will ambulate with or without assistive device distances of 150 feet x 1 with O2. 5) Increase LE strength 1/3 muscle grade to improve stability of gait. 6) The patient will be independent with all transfers and bed mobility Prognosis: Good Physical Therapy Plan: PT 1-2 times a day for gait training, transfer training, balance and lower extremity strengthening exercises.
[2017-07-28] MEDS: LORATADINE 10 MG TABLET PO SCH (21:38)
[2017-07-28] MEDS: PANTOPRAZOLE SODIUM 40 MG TABLET PO SCH (21:38)
[2017-07-28] MEDS: ATORVASTATIN 20 MG TABLET PO SCH (21:38)
[2017-07-29] MEDS: NOVOLOG FLEXPEN (INSULIN ASPART) 100 UNITS/ML SQ SCH ×3 (09:20→19:00)
[2017-07-29] MEDS: LEVEMIR FLEXTOUCH 100 UNIT/ML INSULIN PEN SQ SCH (10:06)
[2017-07-29] MEDS: ASPIRIN 81 MG TABEC PO SCH (10:10)
[2017-07-29] MEDS: FERROUS SULFATE 325 MG TAB PO SCH (10:10)
[2017-07-29] MEDS: FUROSEMIDE 40 MG TABLET PO SCH (10:11)
[2017-07-29] MEDS: POTASSIUM CHLORIDE 10 MEQ TAB PO SCH ×3 (10:11→22:00)
[2017-07-29] MEDS: METOPROLOL TART 50 MG TABLET PO SCH ×2 (10:11→21:57)
[2017-07-29] MEDS: MAGNESIUM OXIDE 400 MG TABLET PO SCH ×2 (10:12→21:57)
[2017-07-29] MEDS: GABAPENTIN 300 MG CAPSULE PO SCH ×2 (10:12→21:57)
[2017-07-29] MEDS: BRILINTA 90 MG PO SCH ×2 (10:13→21:57)
[2017-07-29] MEDS: CHOLECALCIFEROL 1,000 UNIT TABLET PO SCH (10:13)
--- NOTE | 2017-07-29 10:52 | Physical Therapy Tx Note ---
Physical Therapy Tx Note - Treatment Note Tolerated: Fair Total Time Spent With Patient: 15 Physical Therapy Tx Note: Detail (The patient complained of L lateral hip pain and bilateral gastroc. pain after ambulating. The patient ambulated 160 feet x 1 with 3 short rest periods with 3 L of O2 and supervision for safety. The patient refused further activity due to LE pain. MHP were placed on bilateral gastroc. region and L hip x 20 min.) Physical Therapy Problem List: Detail (1) Decreased balance 2) Decreased LE strength primarily R LE 3) Decreased ability to complete sustained physical activity) Physical Therapy Goals: 1) Assess bed mobility. 2) Assess the patient's balance using an Objective balance scale. 3) The patient will ambulate on 3 steps with supervision/independent. 4) The patient will ambulate with or without assistive device distances of 150 feet x 1 with O2. 5) Increase LE strength 1/3 muscle grade to improve stability of gait. 6) The patient will be independent with all transfers and bed mobility Physical Therapy Plan: PT 1-2 times a day for gait training, transfer training, balance and lower extremity strengthening exercises.
--- NOTE | 2017-07-29 13:28 | Occupational Therapy Tx Note ---
Occupational Therapy Tx Note - Treatment Note Occupational Therapy Treatment Note: Detail (Pt refusing OT this afternoon due to feeling too fatigued. Reviewed exercises for the weekend and she verbalized understanding.) Occupational Therapy Problem List: Detail (1. Decreased Ind with showering/ dressing activity tolerance. 2. Decreased endurance for functional mobility and ADLs.) Occupational Therapy Goals: 1. Pt will be safe and Ind with total body dressing using energy conservation techniques. 2. Pt will be safe and Ind with showering in sitting using energy conservation techniques. 3. Pt will demonstrate improved endurance to allow safe and Ind functional mobiity and ADLs. Occupational Therapy Plan: OT 2-4 times per week to address safety, Ind and activity tolerance to allow safe return home with spouse.
[2017-07-29] MEDS: LORATADINE 10 MG TABLET PO SCH (21:56)
[2017-07-29] MEDS: ATORVASTATIN 20 MG TABLET PO SCH (21:56)
[2017-07-29] MEDS: PANTOPRAZOLE SODIUM 40 MG TABLET PO SCH (21:57)
[2017-07-29] MEDS: HYDROCODONE/APAP 5/325MG TABLET PO PRN (22:00)
[2017-07-30 07:15] LABS: BASO % 0.5 % (0-6); EOS % 4.9 % (0-6); GRAN % 59.3 % (47-80); HEMATOCRIT 29.7 % (35.0-47.0); HEMOGLOBIN 8.9 gm/dl (11.6-16.0); LYMPH % 24.1 % (16-45); MEAN CELL VOLUME 97.4 fl (81-97); MEAN PLATELET VOLUME 9.2 fl (7.4-10.4); MONO % 11.2 % (0-9); PLATELET COUNT 339 K/uL (130-400); RED BLOOD COUNT 3.05 M/uL (3.80-5.40); RED CELL DISTRIBUTION WIDTH 17.1 % (11.5-14.5); WHITE BLOOD COUNT W/O DIFF 5.6 K/uL (4.2-12.2)
[2017-07-30 07:20] LABS: MEAN CORPUSCULAR HEMOGLOBIN 29.1 pg (27-33)
[2017-07-30 07:37] LABS: ALBUMIN 3.6 g/dL (4.0-5.0); BILIRUBIN,TOTAL 0.4 mg/dL (0.2-1.0); CREATININE 2.4 mg/dL (0.5-0.9); TOTAL PROTEIN 7.3 g/dL (6.6-8.7)
[2017-07-30] MEDS: NOVOLOG FLEXPEN (INSULIN ASPART) 100 UNITS/ML SQ SCH ×3 (08:20→17:36)
[2017-07-30] MEDS: HYDROCODONE/APAP 5/325MG TABLET PO PRN ×2 (10:17→22:00)
[2017-07-30] MEDS: POTASSIUM CHLORIDE 10 MEQ TAB PO SCH ×2 (10:19→22:06)
[2017-07-30] MEDS: FERROUS SULFATE 325 MG TAB PO SCH (10:19)
[2017-07-30] MEDS: GABAPENTIN 300 MG CAPSULE PO SCH ×2 (10:20→21:59)
[2017-07-30] MEDS: METOPROLOL TART 50 MG TABLET PO SCH ×2 (10:20→21:58)
[2017-07-30] MEDS: ASPIRIN 81 MG TABEC PO SCH (10:20)
[2017-07-30] MEDS: FUROSEMIDE 40 MG TABLET PO SCH (10:20)
[2017-07-30] MEDS: CHOLECALCIFEROL 1,000 UNIT TABLET PO SCH (10:20)
[2017-07-30] MEDS: MAGNESIUM OXIDE 400 MG TABLET PO SCH ×2 (10:21→21:59)
[2017-07-30] MEDS: BRILINTA 90 MG PO SCH ×2 (10:22→22:00)
[2017-07-30] MEDS: LEVEMIR FLEXTOUCH 100 UNIT/ML INSULIN PEN SQ SCH (10:24)
[2017-07-30] MEDS: ATORVASTATIN 20 MG TABLET PO SCH (21:59)
[2017-07-30] MEDS: LORATADINE 10 MG TABLET PO SCH (21:59)
[2017-07-30] MEDS: PANTOPRAZOLE SODIUM 40 MG TABLET PO SCH (21:59)
[2017-07-31] MEDS: NOVOLOG FLEXPEN (INSULIN ASPART) 100 UNITS/ML SQ SCH ×3 (08:56→17:40)
[2017-07-31] MEDS: LEVEMIR FLEXTOUCH 100 UNIT/ML INSULIN PEN SQ SCH (10:23)
[2017-07-31] MEDS: ASPIRIN 81 MG TABEC PO SCH (10:42)
[2017-07-31] MEDS: POTASSIUM CHLORIDE 10 MEQ TAB PO SCH ×2 (10:42→21:24)
[2017-07-31] MEDS: FUROSEMIDE 40 MG TABLET PO SCH (10:42)
[2017-07-31] MEDS: FERROUS SULFATE 325 MG TAB PO SCH (10:42)
[2017-07-31] MEDS: GABAPENTIN 300 MG CAPSULE PO SCH ×2 (10:43→21:25)
[2017-07-31] MEDS: METOPROLOL TART 50 MG TABLET PO SCH ×2 (10:43→21:24)
[2017-07-31] MEDS: MAGNESIUM OXIDE 400 MG TABLET PO SCH ×2 (10:43→21:24)
[2017-07-31] MEDS: CHOLECALCIFEROL 1,000 UNIT TABLET PO SCH (10:44)
[2017-07-31] MEDS: BRILINTA 90 MG PO SCH ×2 (10:44→21:25)
[2017-07-31] MEDS: ATORVASTATIN 20 MG TABLET PO SCH (21:24)
[2017-07-31] MEDS: LORATADINE 10 MG TABLET PO SCH (21:24)
[2017-07-31] MEDS: PANTOPRAZOLE SODIUM 40 MG TABLET PO SCH (21:25)
[2017-07-31] MEDS: HYDROCODONE/APAP 5/325MG TABLET PO PRN (21:28)
[2017-08-01] MEDS: ASPIRIN 81 MG TABEC PO SCH (10:09)
[2017-08-01] MEDS: FERROUS SULFATE 325 MG TAB PO SCH (10:09)
[2017-08-01] MEDS: POTASSIUM CHLORIDE 10 MEQ TAB PO SCH ×2 (10:09→21:06)
[2017-08-01] MEDS: MAGNESIUM OXIDE 400 MG TABLET PO SCH ×2 (10:09→21:06)
[2017-08-01] MEDS: CHOLECALCIFEROL 1,000 UNIT TABLET PO SCH (10:09)
[2017-08-01] MEDS: METOPROLOL TART 50 MG TABLET PO SCH ×2 (10:10→21:06)
[2017-08-01] MEDS: GABAPENTIN 300 MG CAPSULE PO SCH ×2 (10:10→21:06)
[2017-08-01] MEDS: FUROSEMIDE 40 MG TABLET PO SCH (10:10)
[2017-08-01] MEDS: LEVEMIR FLEXTOUCH 100 UNIT/ML INSULIN PEN SQ SCH (10:11)
[2017-08-01] MEDS: NOVOLOG FLEXPEN (INSULIN ASPART) 100 UNITS/ML SQ SCH ×3 (10:12→18:39)
[2017-08-01] MEDS: BRILINTA 90 MG PO SCH ×2 (10:30→21:07)
--- NOTE | 2017-08-01 11:08 | Physical Therapy Tx Note ---
Physical Therapy Tx Note - Treatment Note Tolerated: Good Total Time Spent With Patient: 25 Physical Therapy Tx Note: Detail (The patient was in bed when PT arrived. The patient complained of lower extremity soreness. The patient ambulated 168 feet x 1 with 4 wheeled walker and without device 168 ft x 1 with supervision for safety and 3 L of O2. The patient required a rest period following ambulation. The patient's balance was tested using the Tinetti Assessment Tool and scored 20 /28 which is moderate risk for falling. The patient also completed balance exercises including: side stepping, backward stepping, mid stride and tandem balance and standing on one leg. The patient tolerated treatment well. The patient stated she would like a 4 wheeled walker to use when ambulating in the community.) Physical Therapy Problem List: Detail (1) Decreased balance 2) Decreased LE strength primarily R LE 3) Decreased ability to complete sustained physical activity) Physical Therapy Goals: 1) Assess bed mobility. 2) Assess the patient's balance using an Objective balance scale. 3) The patient will ambulate on 3 steps with supervision/independent. 4) The patient will ambulate with or without assistive device distances of 150 feet x 1 with O2. 5) Increase LE strength 1/3 muscle grade to improve stability of gait. 6) The patient will be independent with all transfers and bed mobility Physical Therapy Plan: PT 1-2 times a day for gait training, transfer training, balance and lower extremity strengthening exercises.
[2017-08-01] MEDS: HYDROCODONE/APAP 5/325MG TABLET PO PRN ×2 (16:13→21:10)
[2017-08-01] MEDS: ATORVASTATIN 20 MG TABLET PO SCH (21:06)
[2017-08-01] MEDS: LORATADINE 10 MG TABLET PO SCH (21:06)
[2017-08-01] MEDS: PANTOPRAZOLE SODIUM 40 MG TABLET PO SCH (21:06)
[2017-08-02] MEDS: HYDROCODONE/APAP 5/325MG TABLET PO PRN ×2 (02:43→10:41)
[2017-08-02] MEDS: NOVOLOG FLEXPEN (INSULIN ASPART) 100 UNITS/ML SQ SCH ×3 (08:23→19:25)
--- NOTE | 2017-08-02 09:14 | Physician Progress Note ---
Subjective - Date Date of Progress Note: 08/02/17 - Admitting Diagnosis Diagnosis: Deconditioning following Cardiac Cath - Subjective Nursing Care Plan Problem List Activity Intolerance (Swing Bed) Start: 07/22/17 14: 57 Freq: Status: Active Protocol: Created 07/22/17 14:57 SAF (Rec: 07/22/17 14:57 SAF [id number]) Diarrhea Start: 07/23/17 18: 42 Freq: Status: Active Protocol: Created 07/23/17 18:42 MMT (Rec: 07/23/17 18:42 MMT [id number]) Ineffective Airway Clearance Start: 07/23/17 16: 09 Freq: Status: Active Protocol: Created 07/23/17 16:09 MMT (Rec: 07/23/17 16:09 MMT [id number]) Knowledge Deficit (Swing Bed) Start: 07/22/17 14: 57 Freq: Status: Active Protocol: Created 07/22/17 14:57 SAF (Rec: 07/22/17 14:57 SAF [id number]) Pain (Swing Bed) Start: 07/22/17 14: 57 Freq: Status: Active Protocol: Created 07/22/17 14:57 SAF (Rec: 07/22/17 14:57 SAF [id number]) Subjective: Jonathan is resting in bed. She is currently on 2L O2 and her oxygen saturation has remained above 92%. She complains of bilateral shoulder pain. She states the pain started several years ago after her first heart stent from adjusting to different body mechanics when pulling herself up to sitting and standing. She denies chest pain and/or tightness and shortness of breath. She states that she feels ready to be discharged tomorrow. She lives at home with her and her daughter visits several times per week. She will be set up with home PT and home health aide. Plan to restart coumadin therapy with instruction of dosing and lab monitoring follow up instructions. - Subjective Detail Constitutional: Denies: Chills, Fever, Malaise Eyes: Reports: As per HPI ENT: Reports: As per HPI Respiratory: Reports: As per HPI. Denies: Cough, Dyspnea Cardiovascular: Denies: Chest pain, Edema, Palpitations, Syncope Endocrine: Denies: Fatigue, Heat or cold intolerance Gastrointestinal: Denies: Abdominal pain, Constipation, Diarrhea, Nausea, Vomiting Genitourinary: Reports: As per HPI Musculoskeletal: Reports: Neck pain, Other (bilateral shoulder pain, left knee pain). Denies: Joint swelling Skin: Reports: As per HPI Neurological: Reports: As per HPI Psychiatric: Reports: As per HPI Hematological/Lymphatic: Reports: As per HPI General - Cognitive Patterns Speech: Normal Thought Process: Intact Thought Content: Normal - Communication Select best description of speech pattern: Clear Speech Ability to express ideas and wants: Understood Understanding verbal content: Understands - Mood and Behavior Patterns Appearance: Well Groomed Mood: Normal Attitude: Cooperative Motor Activity: Calm Affect: Appropriate Hallucinations: Denies - Physical Functioning Activity Level: Up as tolerated Turning: Self ad wilfred ROM Ability: Moves all extremities Assistive Devices: 4 Wheel Walker Activity Level Comment: Has walker, is not using it Ambulation Ability: Independent Bed Mobility: Independent Transfer Ability: Independent Bathing Ability: Independent Personal Hygiene: Independent Dressing Ability: Independent Eating (Feeding) Ability: Independent Toileting Ability: Independent Administer Own Medication: Independent Care Ability Comment: Pt states she can perform ADL's but she gets winded and takes her a long time. - Continence Bowel Pattern: Normal for Patient Bladder Pattern: Normal Urinary Incontinence: Stress Meds/Allergies - Allergies Allergies Allergy/AdvReac Type Severity Reaction Status Date / Time diazepam [From VALIUM] Allergy Unknown ALTERED Verified 02/18/16 12:26 MENTAL STATUS erythromycin lactobionate Allergy Unknown SWELLING Verified 02/18/16 12:26 [From ERYTHROCIN] OF THE TONGUE oxycodone HCl Allergy Unknown BEHAVIORAL Verified 02/18/16 12:26 [From OXYCONTIN] CHANGES adhesive Allergy RASH Verified 02/18/16 12:26 coconut oil Allergy RASH Verified 02/18/16 12:26 levofloxacin [From Levaquin] Allergy HIVES Verified 02/18/16 12:26 sucralose Allergy HIVES Verified 07/22/17 13:46 [From Splenda (sucralose)] carvedilol AdvReac TACHYCARDIA Verified 02/18/16 12:26 codeine AdvReac BEHAVIORAL Verified 02/18/16 12:26 CHANGES - Active Medications Current Medications Acetaminophen (Tylenol 325mg) 650 mg PO Q4H PRN PRN Reason: MILD PAIN Last Admin: 07/26/17 15:46 Dose: 650 mg Hydrocodone Bitart/Acetaminophen ([place] 5mg/325mg) 1 each PO Q6H PRN PRN Reason: MODERATE TO SEVERE PAIN Last Admin: 08/02/17 02:43 Dose: 1 each Albuterol Sulfate (Ventolin Hfa) 2 puff INH Q4H PRN PRN Reason: SHORTNESS OF BREATH Aspirin (Ecotrin (Ec)) 81 mg PO DAILY [facility] Last Admin: 08/01/17 10:09 Dose: 81 mg Atorvastatin Calcium (Lipitor) 10 mg PO QHS [facility] Last Admin: 08/01/17 21:06 Dose: 10 mg Ferrous Sulfate (Iron) 325 mg PO DAILY [facility] Last Admin: 08/01/17 10:09 Dose: 325 mg Furosemide (Lasix) 40 mg PO DAILY [facility] Last Admin: 08/01/17 10:10 Dose: 40 mg Gabapentin (Neurontin) 600 mg PO BID [facility] Last Admin: 08/01/17 21:06 Dose: 600 mg Insulin Aspart (Novolog Flexpen) 0 unit SQ TIDINS [facility] PRN Reason: Protocol Last Admin: 08/02/17 08:23 Dose: 5 unit Insulin Detemir (Levemir Flextouch) 22 unit SQ DAILY [facility] Last Admin: 08/01/17 10:11 Dose: 22 unit Loratadine (Claritin) 10 mg PO QHS [facility] Last Admin: 08/01/17 21:06 Dose: 10 mg Magnesium Oxide (Mag Ox) 400 mg PO BID [facility] Last Admin: 08/01/17 21:06 Dose: 400 mg Metoprolol Tartrate (Lopressor) 50 mg PO BID [facility] Last Admin: 08/01/17 21:06 Dose: 50 mg Pantoprazole Sodium (Protonix) 40 mg PO QHS [facility] Last Admin: 08/01/17 21:06 Dose: 40 mg Patient Own Med: Brilinta 90 Mg ( Ticagrelor) 1 each PO BID [facility] Last Admin: 08/01/17 21:07 Dose: 1 each Potassium Chloride (Klor-Con) 10 meq PO BID [facility] Last Admin: 08/01/17 21:06 Dose: 10 meq Senna/Docusate Sodium (Senna Plus) 1 each PO BID PRN PRN Reason: CONSTIPATION Vitamin D (Vitamin D3) 2,000 unit PO DAILY [facility] Last Admin: 08/01/17 10:09 Dose: 2,000 unit Objective - Vital Signs Vital Signs: Vital Signs - Last 24 Hrs Temp Pulse Resp BP BP Pulse Ox 08/01/17 20:00 98.7 F 62 20 138/62 97 08/01/17 12:45 98 F 111/50 - General General Appearance: Alert, Oriented x3, Cooperative, No acute distress - Head Head exam: Normal inspection - Eye Eye exam: Normal appearance, PERRL - ENT ENT exam: Normal exam, Mucous membranes moist, Normal external ear exam, Normal orophraynx, TM's normal bilaterally - Neck Neck exam: Normal inspection, Full ROM. negative: Tenderness - Respiratory Respiratory exam: Normal lung sounds bilaterally. negative: Respiratory distress - Cardiovascular Cardiovascular Exam: Regular rate (paced), Normal rhythm, Normal heart sounds - GI/Abdominal GI/Abdominal exam: Soft, Normal bowel sounds. negative: Tenderness - Rectal Rectal exam: Deferred - exam: Deferred - Extremities Extremities exam: Normal inspection, Full ROM, Normal capillary refill. negative: Tenderness - Back Back exam: Reports: Normal inspection, Full ROM. Denies: Muscle spasm, Rash noted, Tenderness - Neurological Neurological exam: Alert, Normal gait, Oriented X3, Reflexes normal - Psychiatric Psychiatric exam: Normal affect, Normal mood - Skin Skin exam: Dry, Intact, Warm, Other (ecchymosis) H&P Results - Labs Result Diagrams: 07/30/17 07:00 07/30/17 07:00 Labs Last 24 Hours: Laboratory Results - last 24 hr 08/01/17 08/02/17 11:30 07:30 POC Glucose 325 H 209 H - Chest X-Ray In Last 90 Days Chest X-Ray Within Last 90 Days: Yes Status: Report reviewed, Image reviewed Discharge Potential - Discharge Potential Discharge Potential: Planning to discharge home by 1pm on 08/03/17. Pt. will have home PT, a home- health aide, and a walker. - Discharge Needs Community Services Used Prior to Admission: Home Health Aide Patient Discharge Plan Description: Return Home, Visiting Nurse Community Services Needed at Discharge: Home Health Aide, Physical Therapy Discharge Needs Comment: Does not want Matt SANDOVAL Plan - Swing Bed Certification Initial Certification Due: 07/22/17 14 Day Re-Cert Due: 08/05/17 44 Day Re-Cert Due: 09/04/17 74 Day Re-Cert Due: 10/04/17 - Detailed Diagnosis and Plan (1) Anemia Current Visit: Yes Status: Acute Qualifiers: Anemia type: due to chronic kidney disease Chronic kidney disease stage: stage 4 (severe) Qualified Code(s): N18.4 - Chronic kidney disease, stage 4 ( severe); D63.1 - Anemia in chronic kidney disease; D63.1 - Anemia in chronic kidney disease Base Code: D64.9 - ANEMIA, UNSPECIFIED Comment: 08/02/17- stable. hgb up to 8.9 on 07/30. Continue ferrous sulfate 325mg po once daily as she had been taking it at [facility] -continuing DAP but holding coumadin as recommended for 2 weeks (2) CKD (chronic kidney disease) Current Visit: Yes Status: Acute Qualifiers: Chronic kidney disease stage: stage 4 (severe) Qualified Code(s): N18.4 - Chronic kidney disease, stage 4 (severe) Base Code: N18.9 - CHRONIC KIDNEY DISEASE, UNSPECIFIED Comment: 08/02/17- Stable. BUN/CR 42 and 2.4 with eGFR of 21 on 07/30/17. (3) halfway current use of anticoagulant Current Visit: Yes Status: Acute Base Code: Z79.01 - ALF (CURRENT) USE OF ANTICOAGULANTS Comment: 08/02/17- coumadin discontinued while inpatient at [facility] due to positive occult blood stools and hgb of 6.5. She was continued on her DAP and it was recommended that she restart her coumadin in 2 weeks. She has IVC filter in place. No signs of bleeding with monitoring CBCs, Hgb on 07/30 was 8.9. Encourage ambulation with PT/OT, plan to discharge home tomorrow with home PT. (4) Physical deconditioning Current Visit: Yes Status: Acute Base Code: R53.81 - OTHER MALAISE Comment : 08/02/17- Patient deconditioned secondary to prolonged hospitalization, anemia , and recent stenting. Patient has continued to twork with PT/OT M-F for strength and conditioning. Planning to d/c tomorrow with home PT and walker. (5) Presence of stent in coronary artery in patient with coronary artery disease Current Visit: Yes Status: Acute Base Code: I25.10 - ATHSCL HEART DISEASE OF [place] CORONARY ARTERY W/O ANG PCTRS; Z95.5 - PRESENCE OF CORONARY ANGIOPLASTY IMPLANT AND GRAFT Comment: 08/02/17- Stable. Continue DAP, lipitor 10mg, lasix 40mg, and lopressor 50mg bid. Patient denies chest pain/discomfort and shortness of breath. (6) Full code status Current Visit: Yes Status: Acute Base Code: Z78.9 - OTHER SPECIFIED HEALTH STATUS Comment: 08/02/17- Patient remains full code status.
[2017-08-02] MEDS: GABAPENTIN 300 MG CAPSULE PO SCH ×2 (10:41→21:16)
[2017-08-02] MEDS: CHOLECALCIFEROL 1,000 UNIT TABLET PO SCH (10:41)
[2017-08-02] MEDS: ACETAMINOPHEN 325 MG TAB PO PRN (10:42)
[2017-08-02] MEDS: METOPROLOL TART 50 MG TABLET PO SCH ×2 (10:42→21:16)
[2017-08-02] MEDS: FUROSEMIDE 40 MG TABLET PO SCH (10:44)
[2017-08-02] MEDS: MAGNESIUM OXIDE 400 MG TABLET PO SCH ×2 (10:45→21:16)
[2017-08-02] MEDS: FERROUS SULFATE 325 MG TAB PO SCH (10:45)
[2017-08-02] MEDS: ASPIRIN 81 MG TABEC PO SCH (10:45)
[2017-08-02] MEDS: POTASSIUM CHLORIDE 10 MEQ TAB PO SCH ×2 (10:45→21:16)
[2017-08-02] MEDS: BRILINTA 90 MG PO SCH ×2 (10:45→21:17)
[2017-08-02] MEDS: LEVEMIR FLEXTOUCH 100 UNIT/ML INSULIN PEN SQ SCH (10:54)
--- NOTE | 2017-08-02 11:09 | Physical Therapy Tx Note ---
Physical Therapy Tx Note - Treatment Note Tolerated: Good Total Time Spent With Patient: 30 Physical Therapy Tx Note: Detail (The patient was in bed when PT arrived. The patient complained of L shoulder pain and calf pain after ambulating. The patient's LE strength was re-evaluated, refer to discharge summary for strength grades. The patient ambulated with 4 wheeled walker a distance of 280.5 x 2 with supervision for safety and 3 L of O2. The patient completed balance exercises included balancing with various bases of support with perturbations. standing with mid stride support . The patient was instructed in calf stretching in a seated position.) Physical Therapy Problem List: Detail (1) Decreased balance 2) Decreased LE strength primarily R LE 3) Decreased ability to complete sustained physical activity) Physical Therapy Goals: 1) Assess bed mobility. 2) Assess the patient's balance using an Objective balance scale. 3) The patient will ambulate on 3 steps with supervision/independent. 4) The patient will ambulate with or without assistive device distances of 150 feet x 1 with O2. 5) Increase LE strength 1/3 muscle grade to improve stability of gait. 6) The patient will be independent with all transfers and bed mobility Physical Therapy Plan: PT 1-2 times a day for gait training, transfer training, balance and lower extremity strengthening exercises.
--- NOTE | 2017-08-02 14:35 | Occupational Therapy Tx Note ---
Occupational Therapy Tx Note - Treatment Note Tolerated: Good Total Time Spent With Patient: 45 (ther ex) Occupational Therapy Treatment Note: Detail (S: Pt resting in bed. O: Supine to sit Indly and completed toileting Indly. Amb to rehab gym with 4 wheeled walker and 2 liters of oxygen with 1 short rest break due to leg fatigue. Pt completed higinio UE stretches with passive pulleys for shoulder flexion, abduction and horiz. ab/adduction. She completed higinio UE strengthening with resistive clothespins for overhead reaching and received written HEP for theraband and completed 10 reps of higinio shoulder flexion, retraction, elbow flexion, elbow extension, wrist flexion and wrist ext with yellow theraband. MTT for higinio shoulder and upper traps due to pain and tightness. Pt amb back to room with 4 wheeled walker and 2 liters of oxygen. A: Significant increase in overall endurance, Ind with theraputty and theraband HEP.) Occupational Therapy Problem List: Detail (1. Decreased Ind with showering/ dressing activity tolerance. 2. Decreased endurance for functional mobility and ADLs.) Occupational Therapy Goals: 1. Pt will be safe and Ind with total body dressing using energy conservation techniques. 2. Pt will be safe and Ind with showering in sitting using energy conservation techniques. 3. Pt will demonstrate improved endurance to allow safe and Ind functional mobiity and ADLs. Occupational Therapy Plan: OT 2-4 times per week to address safety, Ind and activity tolerance to allow safe return home with spouse.
[2017-08-02] MEDS: HYDROCODONE/APAP 7.5/325MG TABLET PO PRN ×2 (14:40→20:51)
[2017-08-02] MEDS: PANTOPRAZOLE SODIUM 40 MG TABLET PO SCH (21:16)
[2017-08-02] MEDS: LORATADINE 10 MG TABLET PO SCH (21:16)
[2017-08-02] MEDS: ATORVASTATIN 20 MG TABLET PO SCH (21:16)
[2017-08-03] MEDS: HYDROCODONE/APAP 7.5/325MG TABLET PO PRN (02:42)
[2017-08-03] MEDS: NOVOLOG FLEXPEN (INSULIN ASPART) 100 UNITS/ML SQ SCH ×2 (07:59→12:20)
[2017-08-03 09:12] LABS: BASO % 0.8 % (0-6); HEMATOCRIT 35.4 % (35.0-47.0); HEMOGLOBIN 10.6 gm/dl (11.6-16.0); LYMPH % 18.3 % (16-45); MEAN CELL VOLUME 97.3 fl (81-97); MEAN CORPUSCULAR HEMOGLOBIN 29.1 pg (27-33); MEAN CORPUSCULAR HGB CONC 29.9 g/dl (32-36); MEAN PLATELET VOLUME 9.6 fl (7.4-10.4); MONO % 9.9 % (0-9); PLATELET COUNT 331 K/uL (130-400); RED BLOOD COUNT 3.64 M/uL (3.80-5.40); RED CELL DISTRIBUTION WIDTH 17.1 % (11.5-14.5); WHITE BLOOD COUNT W/O DIFF 7.4 K/uL (4.2-12.2)
[2017-08-03 09:21] LABS: BILIRUBIN,TOTAL 0.5 mg/dL (0.2-1.0); CREATININE 2.4 mg/dL (0.5-0.9); INR 1.11
[2017-08-03 09:22] LABS: TOTAL PROTEIN 8.1 g/dL (6.6-8.7)
--- NOTE | 2017-08-03 09:22 | Discharge Summary ---
Providers Discharge Summary Date: 08/03/17 Date of admission: 07/22/17 12:47 Expected Date of Discharge: 08/03/17 Attending physician: Mani Rodrigez Primary care physician: Claribel MON D.O. Physical Exam - Vital Signs Vital Signs: Vital Signs - Last 24 Hrs Temp Pulse Resp BP Pulse Ox 08/03/17 08:00 98.0 F 60 18 141/67 97 08/02/17 20:00 98.0 F 64 18 137/63 98 - General General Appearance: Alert, Oriented x3, Cooperative, No acute distress - Head Head exam: Normal inspection - Eye Eye exam: Normal appearance, PERRL - ENT ENT exam: Normal exam, Mucous membranes moist, Normal external ear exam, Normal orophraynx, TM's normal bilaterally - Neck Neck exam: Normal inspection, Full ROM. negative: Tenderness - Respiratory Respiratory exam: Normal lung sounds bilaterally. negative: Respiratory distress - Cardiovascular Cardiovascular Exam: Regular rate (paced), Normal rhythm, Normal heart sounds - GI/Abdominal GI/Abdominal exam: Soft, Normal bowel sounds. negative: Tenderness - Rectal Rectal exam: Deferred - exam: Deferred - Extremities Extremities exam: Normal inspection, Full ROM, Normal capillary refill. negative: Tenderness - Back Back exam: Reports: Normal inspection, Full ROM. Denies: Muscle spasm, Rash noted, Tenderness - Neurological Neurological exam: Alert, Normal gait, Oriented X3, Reflexes normal - Psychiatric Psychiatric exam: Normal affect, Normal mood - Skin Skin exam: Dry, Intact, Warm, Other (ecchymosis) Hospitalization - Hospitalization Admission Diagnosis: Deconditioning following Cardiac Cath - Problem List (1) Anemia Current Visit: Yes Status: Acute Discharge Diagnosis: Anemia type: due to chronic kidney disease Chronic kidney disease stage: stage 4 (severe) Qualified Code(s): N18.4 - Chronic kidney disease, stage 4 ( severe); D63.1 - Anemia in chronic kidney disease; D63.1 - Anemia in chronic kidney disease Base Code: D64.9 - ANEMIA, UNSPECIFIED Comment: 08/03/17- Stable. Hgb today has increased to 10.6, Hct 35.4. Plan to discharge home today and coninue ferrous sulfate 325mg PO daily. Holding coumadin until follow up with PCP on . (2) CKD (chronic kidney disease) Current Visit: Yes Status: Acute Discharge Diagnosis: Chronic kidney disease stage: stage 4 (severe) Qualified Code(s): N18.4 - Chronic kidney disease, stage 4 (severe) Base Code: N18.9 - CHRONIC KIDNEY DISEASE, UNSPECIFIED Comment: 08/03/17- Lab monitoring of CKD has remained stable. BUN/CR today 44/2.4 with eGRF 21. Continue ADA diet, plan to discharge home today. 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 Mon) regarding restarting coumadin therapy. PCP unavailable at this time, however, his nurse recommended that CBC, CMP, and PT/IRN today and fax results to [facility] office. Labs completed and faxed. Pt. will follow up with PCP on 08/08/17. So signs of bleeding, plan to d/c home today with home pt/ot. (4) Physical deconditioning Current Visit: Yes Status: Acute Base Code: R53.81 - OTHER MALAISE Comment : 08/03/17- Patient deconditioned secondary to prolonged hospitalization, anemia , and recent stenting. Patient will d/c home today with walker and home pt/ot for strength and conditioning. (5) Presence of stent in coronary artery in patient with coronary artery disease Current Visit: Yes Status: Acute Base Code: I25.10 - ATHSCL HEART DISEASE OF [place] CORONARY ARTERY W/O ANG PCTRS; Z95.5 - PRESENCE OF CORONARY ANGIOPLASTY IMPLANT AND GRAFT Comment: 08/02/17- Stable. Continued DAP, lipitor 10mg, lasix 40mg, and lopressor 50mg bid. Patient denies chest pain/ discomfort and shortness of breath. Planning to d/c home today and continue medications. (6) Full code status Current Visit: Yes Status: Acute Base Code: Z78.9 - OTHER SPECIFIED HEALTH STATUS Comment: 08/03/17- Patient remains full code status. - Hospitalization Course Disposition: Home Health Service Reason For Discharge/Transfer: Medical Stability Hospital Course: 67yo female admitted to [facility] for deconditioning following heart cath. She has history of CKD 3-4, CAD s/p multiple stents, pacemaker, 3 PE's. 1 DVT on life long anticoagulation therapy with coumadin, IVC filter, CHF, Takotsubo, CVA, COPD, afib, htn, hlp, fibromyalgia, DM. Patient was admitted to [facility] 07/13/17- 07/22/17 for chest pain sent there by her medical records field technician. She had undergone heart cath on 07-08-[address] Kiser and CABG was recommended at that time but she was not a surgical candidate, but eventually underwent heart cath with PCI and 2 TAMIKO. When she presented to [facility], she was found to be anemic and received 2 units on 07/14/17. She had occult positive stools so her coumadin was discontinued, asa and brilinta continued. She had elevated troponin I at 0.52. was evaluated by cardiology who felt her troponin elevated was 2/2 demand ischemia from anemia and renal disease. Nephro and GI evaluated patient. Did not recommend scope but did recommend PPI and restarting her coumadin in 2-4 weeks if hgb remains stable. 07/23/17- Patient states she is doing ok today. She has had some stomach cramping and an episode of sharp chest pain this morning. she has long history of chronic , intermittent, stomach pain. She does report that she has had frequent, loose, green, foul stool since she was in [facility]. She is attributing this to the iron supplements she was getting three times a day. She denies shortness of breath, vision change. she got up to walk today and says she still feels weak. 08/02/17: Jonathan is resting in bed. She is currently on 2L O2 and her oxygen saturation has remained above 92%. She complains of bilateral shoulder pain. She states the pain started several years ago after her first heart stent from adjusting to different body mechanics when pulling herself up to sitting and standing. She denies chest pain and/or tightness and shortness of breath. She states that she feels ready to be discharged tomorrow. She lives at home with her and her daughter visits several times per week. She will be set up with home PT and home health aide. Plan to restart coumadin therapy with instruction of dosing and lab monitoring follow up instructions. 08/03/17: Patient is doing well this morning, she states that she feels ready to go home. She is concerned about restarting her coumadin and verbalized that she prefers to wait until her f/u with PCP on 08/08. CBC, CMP, and PT/INR drawn today and results faxed to pt's PCP per request of PCP's nurse. Vital signs and lab monitoring has remained at pt's baseline. Plan to discharge home this afternoon with home PT/OT and home health aide arrangements in place. PCP: Dr. Mon Rotor Coil Taper: Soheila Procedures: Cardiology Procedures 07/23/17 09:54 EKG NOW Abnormal Labs: Abnormal Lab Results 07/22/17 07/22/17 07/22/17 Range/Units 16:01 17:28 22:00 RBC (3.80-5.40) M/uL Hgb (11.6-16.0) gm/dl Hct (35.0-47.0) % MCV (81-97) fl MCHC (32-36) g/dl RDW (11.5-14.5) % Lymphocytes % (16-45) % Monocytes % (0-9) % Chloride (98-107) mmol/L BUN (8-23) mg/dL Creatinine (0.5-0.9) mg/dL POC Glucose 254 H 191 H 188 H (70-110) mg/dL Random Glucose (74-109) mg/dL Calcium (8.8-10.2) mg/dL Magnesium (1.6-2.4) mg/dL Alkaline Phosphatase (35-104) U/L Troponin T (0-0.010) ng/mL Albumin (4.0-5.0) g/dL Albumin/Globulin Ratio (1.1-1.8) 07/23/17 07/23/17 07/23/17 Range/Units 06:15 06:15 11:13 RBC 3.01 L (3.80-5.40) M/uL Hgb 8.8 L (11.6-16.0) gm/dl Hct 28.4 L (35.0-47.0) % MCV (81-97) fl MCHC 31.0 L (32-36) g/dl RDW 16.1 H (11.5-14.5) % Lymphocytes % 15.0 L (16-45) % Monocytes % (0-9) % Chloride (98-107) mmol/L BUN 31 H (8-23) mg/dL Creatinine 2.3 H (0.5-0.9) mg/dL POC Glucose (70-110) mg/dL Random Glucose 148 H (74-109) mg/dL Calcium 8.5 L (8.8-10.2) mg/dL Magnesium (1.6-2.4) mg/dL Alkaline Phosphatase (35-104) U/L Troponin T 0.042 H (0-0.010) ng/mL Albumin (4.0-5.0) g/dL Albumin/Globulin Ratio (1.1-1.8) 07/23/17 07/23/17 07/23/17 Range/Units 12:18 17:40 20:30 RBC (3.80-5.40) M/uL Hgb (11.6-16.0) gm/dl Hct (35.0-47.0) % MCV (81-97) fl MCHC (32-36) g/dl RDW (11.5-14.5) % Lymphocytes % (16-45) % Monocytes % (0-9) % Chloride (98-107) mmol/L BUN (8-23) mg/dL Creatinine (0.5-0.9) mg/dL POC Glucose 212 H 139 H (70-110) mg/dL Random Glucose (74-109) mg/dL Calcium (8.8-10.2) mg/dL Magnesium (1.6-2.4) mg/dL Alkaline Phosphatase (35-104) U/L Troponin T 0.038 H (0-0.010) ng/mL Albumin (4.0-5.0) g/dL Albumin/Globulin Ratio (1.1-1.8) 07/23/17 07/24/17 07/24/17 Range/Units 22:53 07:43 12:09 RBC (3.80-5.40) M/uL Hgb (11.6-16.0) gm/dl Hct (35.0-47.0) % MCV (81-97) fl MCHC (32-36) g/dl RDW (11.5-14.5) % Lymphocytes % (16-45) % Monocytes % (0-9) % Chloride (98-107) mmol/L BUN (8-23) mg/dL Creatinine (0.5-0.9) mg/dL POC Glucose 156 H 142 H 351 H (70-110) mg/dL Random Glucose (74-109) mg/dL Calcium (8.8-10.2) mg/dL Magnesium (1.6-2.4) mg/dL Alkaline Phosphatase (35-104) U/L Troponin T (0-0.010) ng/mL Albumin (4.0-5.0) g/dL Albumin/Globulin Ratio (1.1-1.8) 07/24/17 07/24/17 07/25/17 Range/Units 17:35 22:00 07:52 RBC (3.80-5.40) M/uL Hgb (11.6-16.0) gm/dl Hct (35.0-47.0) % MCV (81-97) fl MCHC (32-36) g/dl RDW (11.5-14.5) % Lymphocytes % (16-45) % Monocytes % (0-9) % Chloride (98-107) mmol/L BUN (8-23) mg/dL Creatinine (0.5-0.9) mg/dL POC Glucose 263 H 136 H 242 H (70-110) mg/dL Random Glucose (74-109) mg/dL Calcium (8.8-10.2) mg/dL Magnesium (1.6-2.4) mg/dL Alkaline Phosphatase (35-104) U/L Troponin T (0-0.010) ng/mL Albumin (4.0-5.0) g/dL Albumin/Globulin Ratio (1.1-1.8) 07/25/17 07/25/17 07/25/17 Range/Units 11:41 18:04 22:00 RBC (3.80-5.40) M/uL Hgb (11.6-16.0) gm/dl Hct (35.0-47.0) % MCV (81-97) fl MCHC (32-36) g/dl RDW (11.5-14.5) % Lymphocytes % (16-45) % Monocytes % (0-9) % Chloride (98-107) mmol/L BUN (8-23) mg/dL Creatinine (0.5-0.9) mg/dL POC Glucose 304 H 257 H 135 H (70-110) mg/dL Random Glucose (74-109) mg/dL Calcium (8.8-10.2) mg/dL Magnesium (1.6-2.4) mg/dL Alkaline Phosphatase (35-104) U/L Troponin T (0-0.010) ng/mL Albumin (4.0-5.0) g/dL Albumin/Globulin Ratio (1.1-1.8) 07/26/17 07/26/17 07/26/17 Range/Units 07:50 12:56 17:46 RBC (3.80-5.40) M/uL Hgb (11.6-16.0) gm/dl Hct (35.0-47.0) % MCV (81-97) fl MCHC (32-36) g/dl RDW (11.5-14.5) % Lymphocytes % (16-45) % Monocytes % (0-9) % Chloride (98-107) mmol/L BUN (8-23) mg/dL Creatinine (0.5-0.9) mg/dL POC Glucose 176 H 214 H 173 H (70-110) mg/dL Random Glucose (74-109) mg/dL Calcium (8.8-10.2) mg/dL Magnesium (1.6-2.4) mg/dL Alkaline Phosphatase (35-104) U/L Troponin T (0-0.010) ng/mL Albumin (4.0-5.0) g/dL Albumin/Globulin Ratio (1.1-1.8) 07/26/17 07/26/17 07/27/17 Range/Units 17:58 17:58 11:30 RBC 3.28 L (3.80-5.40) M/uL Hgb 10.0 L (11.6-16.0) gm/dl Hct 31.3 L (35.0-47.0) % MCV (81-97) fl MCHC 31.9 L (32-36) g/dl RDW 17.1 H (11.5-14.5) % Lymphocytes % (16-45) % Monocytes % 9.1 H (0-9) % Chloride 97 L (98-107) mmol/L BUN 45 H (8-23) mg/dL Creatinine 2.7 H (0.5-0.9) mg/dL POC Glucose 171 H (70-110) mg/dL Random Glucose (74-109) mg/dL Calcium (8.8-10.2) mg/dL Magnesium 1.2 L (1.6-2.4) mg/dL Alkaline Phosphatase 184 H (35-104) U/L Troponin T (0-0.010) ng/mL Albumin 3.7 L (4.0-5.0) g/dL Albumin/Globulin Ratio 0.9 L (1.1-1.8) 07/27/17 07/27/17 07/28/17 Range/Units 17:00 22:33 07:30 RBC (3.80-5.40) M/uL Hgb (11.6-16.0) gm/dl Hct (35.0-47.0) % MCV (81-97) fl MCHC (32-36) g/dl RDW (11.5-14.5) % Lymphocytes % (16-45) % Monocytes % (0-9) % Chloride (98-107) mmol/L BUN (8-23) mg/dL Creatinine (0.5-0.9) mg/dL POC Glucose 184 H 136 H 192 H (70-110) mg/dL Random Glucose (74-109) mg/dL Calcium (8.8-10.2) mg/dL Magnesium (1.6-2.4) mg/dL Alkaline Phosphatase (35-104) U/L Troponin T (0-0.010) ng/mL Albumin (4.0-5.0) g/dL Albumin/Globulin Ratio (1.1-1.8) 07/28/17 07/28/17 07/29/17 Range/Units 11:30 16:47 11:30 RBC (3.80-5.40) M/uL Hgb (11.6-16.0) gm/dl Hct (35.0-47.0) % MCV (81-97) fl MCHC (32-36) g/dl RDW (11.5-14.5) % Lymphocytes % (16-45) % Monocytes % (0-9) % Chloride (98-107) mmol/L BUN (8-23) mg/dL Creatinine (0.5-0.9) mg/dL POC Glucose 226 H 115 H 356 H (70-110) mg/dL Random Glucose (74-109) mg/dL Calcium (8.8-10.2) mg/dL Magnesium (1.6-2.4) mg/dL Alkaline Phosphatase (35-104) U/L Troponin T (0-0.010) ng/mL Albumin (4.0-5.0) g/dL Albumin/Globulin Ratio (1.1-1.8) 07/29/17 07/30/17 07/30/17 Range/Units 17:15 07:00 07:00 RBC 3.05 L (3.80-5.40) M/uL Hgb 8.9 L (11.6-16.0) gm/dl Hct 29.7 L (35.0-47.0) % MCV 97.4 H (81-97) fl MCHC 30.0 L (32-36) g/dl RDW 17.1 H (11.5-14.5) % Lymphocytes % (16-45) % Monocytes % 11.2 H (0-9) % Chloride (98-107) mmol/L BUN 42 H (8-23) mg/dL Creatinine 2.4 H (0.5-0.9) mg/dL POC Glucose 69 L (70-110) mg/dL Random Glucose 198 H (74-109) mg/dL Calcium (8.8-10.2) mg/dL Magnesium (1.6-2.4) mg/dL Alkaline Phosphatase 158 H (35-104) U/L Troponin T (0-0.010) ng/mL Albumin 3.6 L (4.0-5.0) g/dL Albumin/Globulin Ratio 1.0 L (1.1-1.8) 07/30/17 07/30/17 07/31/17 Range/Units 09:19 17:15 07:30 RBC (3.80-5.40) M/uL Hgb (11.6-16.0) gm/dl Hct (35.0-47.0) % MCV (81-97) fl MCHC (32-36) g/dl RDW (11.5-14.5) % Lymphocytes % (16-45) % Monocytes % (0-9) % Chloride (98-107) mmol/L BUN (8-23) mg/dL Creatinine (0.5-0.9) mg/dL POC Glucose 213 H 170 H 177 H (70-110) mg/dL Random Glucose (74-109) mg/dL Calcium (8.8-10.2) mg/dL Magnesium (1.6-2.4) mg/dL Alkaline Phosphatase (35-104) U/L Troponin T (0-0.010) ng/mL Albumin (4.0-5.0) g/dL Albumin/Globulin Ratio (1.1-1.8) 07/31/17 07/31/17 08/01/17 Range/Units 11:30 18:37 07:30 RBC (3.80-5.40) M/uL Hgb (11.6-16.0) gm/dl Hct (35.0-47.0) % MCV (81-97) fl MCHC (32-36) g/dl RDW (11.5-14.5) % Lymphocytes % (16-45) % Monocytes % (0-9) % Chloride (98-107) mmol/L BUN (8-23) mg/dL Creatinine (0.5-0.9) mg/dL POC Glucose 205 H 127 H 174 H (70-110) mg/dL Random Glucose (74-109) mg/dL Calcium (8.8-10.2) mg/dL Magnesium (1.6-2.4) mg/dL Alkaline Phosphatase (35-104) U/L Troponin T (0-0.010) ng/mL Albumin (4.0-5.0) g/dL Albumin/Globulin Ratio (1.1-1.8) 08/01/17 08/02/17 08/02/17 Range/Units 11:30 07:30 11:22 RBC (3.80-5.40) M/uL Hgb (11.6-16.0) gm/dl Hct (35.0-47.0) % MCV (81-97) fl MCHC (32-36) g/dl RDW (11.5-14.5) % Lymphocytes % (16-45) % Monocytes % (0-9) % Chloride (98-107) mmol/L BUN (8-23) mg/dL Creatinine (0.5-0.9) mg/dL POC Glucose 325 H 209 H 312 H (70-110) mg/dL Random Glucose (74-109) mg/dL Calcium (8.8-10.2) mg/dL Magnesium (1.6-2.4) mg/dL Alkaline Phosphatase (35-104) U/L Troponin T (0-0.010) ng/mL Albumin (4.0-5.0) g/dL Albumin/Globulin Ratio (1.1-1.8) 08/02/17 08/03/17 Range/Units 17:00 07:30 RBC (3.80-5.40) M/uL Hgb (11.6-16.0) gm/dl Hct (35.0-47.0) % MCV (81-97) fl MCHC (32-36) g/dl RDW (11.5-14.5) % Lymphocytes % (16-45) % Monocytes % (0-9) % Chloride (98-107) mmol/L BUN (8-23) mg/dL Creatinine (0.5-0.9) mg/dL POC Glucose 116 H 115 H (70-110) mg/dL Random Glucose (74-109) mg/dL Calcium (8.8-10.2) mg/dL Magnesium (1.6-2.4) mg/dL Alkaline Phosphatase (35-104) U/L Troponin T (0-0.010) ng/mL Albumin (4.0-5.0) g/dL Albumin/Globulin Ratio (1.1-1.8) Condition at Discharge: (2) Stable Discharge Medications - Discharge Medications Home Medications: Ambulatory Orders Albuterol Sulfate [Proventil Hfa] 2 puff INH Q4H PRN 09/06/14 [Last Taken ] Aspirin [Aspirin EC] 81 mg PO DAILY 09/06/14 [Last Taken 02/18/16] Cholecalciferol (Vitamin D3) [Vitamin D3] 2,000 unit PO DAILY 09/06/14 [Last Taken 02/18/16] Insulin Aspart [Novolog] 4 unit SQ WMEALS 09/06/14 [Last Taken 02/18/16] Ferrous Sulfate 325 mg PO DAILY 12/14/15 [Last Taken 02/18/16] Insulin Glargine,Hum.rec.anlog [Lantus] 14 unit SQ QAM 12/14/15 [Last Taken 09/30] Metoprolol Tartrate [Lopressor] 50 mg PO BID 12/14/15 [Last Taken 02/18/16] Ticagrelor [Brilinta] 90 mg PO BID 12/14/15 [Last Taken 02/18/16] Furosemide 40 mg PO DAILY 02/18/16 [Last Taken 02/18/16] Atorvastatin Calcium [Lipitor] 10 mg PO QHS 07/22/17 [Last Taken Unknown] Cetirizine HCl [Zyrtec] 10 mg PO QHS 07/22/17 [Last Taken Unknown] Esomeprazole Magnesium [Nexium] 40 mg PO QHS 07/22/17 [Last Taken Unknown] Gabapentin [Neurontin] 600 mg PO BID 07/22/17 [Last Taken Unknown] Potassium Chloride [Klor-Con 10] 10 meq PO BID 07/22/17 [Last Taken Unknown] Discharge Plan - Discharge Instructions Activity at Discharge: Ambulate Only With Your Walker, As Per Physical Therapy, Wear Oxygen At All Times Diet at Discharge: Diabetic Diet Instructions: Chronic Kidney Disease Diet (DC) Additional Instructions: 2 Activity: Wear Oxygen At All Times 2 Diet: Diabetic Diet 2 Additional: [facility] will see you at home for Physical and Occupational Therapy. They can be reached at [phone]. Return to the closest emergency department with any new or worsening symptoms. Follow up with your primary care physician on Tuesday as scheduled. Quality Measures - Quality Measures Quality Measures: Advance Directives, Coronary Artery Disease: Antiplatelet Therapy, Documentation of Current Medications in Medical Record, Elder Maltreatment Screen and Follow-Up Plan, Screening for High Blood Pressure and F/ U Documented - Current Medications Quality Measure: Measure #130: Documentation of Current Medications Documentation of Current Medications: <Current Medications Documented/Reviewed> [G8427] - Blood Pressure Screening Quality Measure: Screening for High Blood Pressure and Follow-Up Documented Does Patient Have Any of the Following: Active Dx of HTN Blood Pressure Classification: Normal BP Reading Systolic Measurement: 111 Diastolic Measurement: 50 Screening for High Blood Pressure: Patient Exclusion, Hx of HTN [G9744] - Coronary Artery Disease Quality Measure: Measure #6: Coronary Artery Disease (CAD) Antiplatelet Therapy: <ASA or clopidogrel prescribed> [4086F] - Advance Directives Quality Measure: Measure #47: Care Plan Advance Directives Established: Yes Advance Directives Information Provided To Patient: No Advance Directives on File: No Living Will: Yes Power of Spot Welder Line: Yes Advance Care Planning: <Care Plan/Decision Maker Documented; Discussed & Documented> [1123F] - Elder Abuse Suspicion Index Screening: Elder Abuse Suspicion Index Screening Rely on people for bathing, dressing, shopping, banking, etc: No Prevented from getting food, clothes, medication, etc: No Made to feel shamed or threatened by someone: No Forced to sign papers or use money against will: No Feel afraid, touched in ways not wanted or hurt physically: No Poor eye contact, withdrawn, malnourished, cuts or bruises: No Screening Result: Negative result EASI Reference Information: Gabriel RUIZ, Javad C, Trevor D, Ruth Garcia.Development and validation of a tool to assist physicians identification of elder abuse: The Elder Abuse Suspicion Index (EASI ). Journal of Elder Abuse and Neglect, 2008; 20 (3): 276-300. - Elder Maltreatment Screen Quality Measures: Elder Maltreatment Screen and Follow-Up Plan Elder Maltreatment Screen: <Negative, No Follow-Up Plan Required> [G1560]
[2017-08-03 09:26] LABS: ALB/GLOB RATIO 0.9 (1.1-1.8); ALBUMIN 3.9 g/dL (4.0-5.0)
[2017-08-03] MEDS: LEVEMIR FLEXTOUCH 100 UNIT/ML INSULIN PEN SQ SCH (09:44)
[2017-08-03] MEDS: BRILINTA 90 MG PO SCH (09:46)
[2017-08-03] MEDS: MAGNESIUM OXIDE 400 MG TABLET PO SCH (09:46)
[2017-08-03] MEDS: CHOLECALCIFEROL 1,000 UNIT TABLET PO SCH (09:46)
[2017-08-03] MEDS: GABAPENTIN 300 MG CAPSULE PO SCH (09:46)
[2017-08-03] MEDS: METOPROLOL TART 50 MG TABLET PO SCH (09:46)
[2017-08-03] MEDS: FUROSEMIDE 40 MG TABLET PO SCH (09:46)
[2017-08-03] MEDS: ASPIRIN 81 MG TABEC PO SCH (09:46)
[2017-08-03] MEDS: FERROUS SULFATE 325 MG TAB PO SCH (09:46)
[2017-08-03] MEDS: POTASSIUM CHLORIDE 10 MEQ TAB PO SCH (09:49)
--- NOTE | 2017-08-03 11:21 | Rehab Discharge Summary ---
Patient Information - Patient Information Diagnosis: Deconditioning following cath. Ordered Treatment: PT Evaluate and Treat History: Detail (The patient underwent a cath. for placement of a stent @ [facility] . The patient was admitted to [facility] 2 after discharge from [facility] with complaints of chest pain . The patient was transferred to [facility] Swing Bed unit for Rehab.) Past Medical/Surgical Hx: PAST MEDICAL/SURGICAL HISTORY Past Surgical History Pacemaker 2010 Hysterectomy 1975 Breast Reduction 1990 Colon Resection 1995 Angioplasty 2007 Cardiac stent 2015 Heart Cath 2007 Bilateral Eye Cataract 2008 PMH - Respiratory Hx Respiratory Disorders Yes Hx Bronchitis Yes Hx Chronic Obstructive Yes Pulmonary Disease (COPD) PMH - Cardiovascular Hx Cardiovascular Disorders Yes Hx Hypertension Yes Hx Irregular Heartbeat Yes: Unknown PMH - Neuro Hx Neurological Disorders No PMH - GI Hx Gastrointestinal Disorders Yes Hx Gastroesophageal Reflux Yes PMH - Hx Genitourinary Disorders No PMH - Endocrine Hx Endocrine Disorders Yes Hx Diabetes Yes PMH - Musculoskeletal Hx Musculoskeletal Disorders Yes Hx Arthritis Yes: back pain, chronic PMH - Psych Hx Psychiatric Problems No PMH - Hematology/Oncology Hx Hematology/Oncology Yes Disorders Premorbid Status: Detail (The patient was ambulatory household distances without device with use of O2.) Social History: Detail (The patient lives with spouse in a one story home with a basement with 2 steps without a railing at the enterance. The patient's bathroom is equipped with a tub/shower combination with grab bars and a standard toilet with a grab bar. The patient has a 2 wheeled walker, commode and standard cane and home O2.) Precautions: [place], Fall Subjective Information - Subjective Information Per Patient (The patient has complaints of pain in bilateral shoulders, calves and quads. The patient had less complaints of fatigue with activity.) Objective Data - Mental Status Patient Orientation: Oriented x3 - Visual Perception Appears within normal limits for therapeutic activities - ROM Within normal limits - Strength/Tone Within normal limits (The patient's LE strength was now generally 4+/5 throughout except for L hip flexors 4/5.) - Bed Mobility Independent (The patient was independent with supine to and from sit transfer and scooting up in bed.) - Transfers Independent (The patient was independent with sit to and from stand transfer and toilet transfers.) - Balance Balance Sitting: Good Balance Standing: Fair (The patient scored 20/28 using the Tinetti Assessment Tool which is in the moderate at risk for falling category.) - Gait Detail (The patient ambulated without assistive device independently with 3L of O2 a distance of 150 plus. The patient's gait pattern was charecterized by wide base of support. Less stagger steps were noted. The patient also ambulated with a 4 wheeled walker and 3 L of O2 a distance of 280 feet x2 ( with a rest period in between).) Therapy Assessment - Therapy Assessment Detail (The patient was independent with mobility and ambulation. The patient is to use 4 wheeled walker with seat for ambulating distances. The patient continues to have impaired balance, however improved balance reactions were noted , as well as steadiness of gait pattern. The patient is to receive Home PT for continued balance exercises and assessment of safety in the home environment.) Patient Education - Patient Education Teaching Topic: Equipment Use (The patient was instructed in proper use of 4 wheeled walker.), Exercise/Activity (The patient was instructed in LE strengthening exercises and balance exercises.) Response: Return Demonstration Teaching Method: Discussion, Handout Teaching Recipient: Patient, Family Barriers To Learning: Age Related Problem List - Problem List Physical Therapy Problem List: Detail (1) Decreased balance 2) Decreased LE strength primarily R LE 3) Decreased ability to complete sustained physical activity) Occupational Therapy Problem List: Detail (1. Decreased Ind with showering/ dressing activity tolerance. 2. Decreased endurance for functional mobility and ADLs.) Goals - Goals Physical Therapy Goals: GOALS MET: 1) Assess bed mobility. 2) Assess the patient's balance using an Objective balance scale. 3) The patient will ambulate on 3 steps with supervision/independent. 4) The patient will ambulate with or without assistive device distances of 150 feet x 1 with O2. 5) Increase LE strength 1/3 muscle grade to improve stability of gait. 6) The patient will be independent with all transfers and bed mobility Occupational Therapy Goals: 1. Pt will be safe and Ind with total body dressing using energy conservation techniques. 2. Pt will be safe and Ind with showering in sitting using energy conservation techniques. 3. Pt will demonstrate improved endurance to allow safe and Ind functional mobiity and ADLs. Plan - Plan Physical Therapy Plan: The patient is to be discharged from [facility] this pm to home. The patient is to receive Home OT/PT . Occupational Therapy Plan: OT 2-4 times per week to address safety, Ind and activity tolerance to allow safe return home with spouse.
== END 2017-08-03 13:29 | disposition home health service (06) | DRG 948 ==
LOC: MEDSURG 07-22 12:47 → UNDOADMIN 07-22 12:47
PROVIDERS: ADMIT Internal Medicine; ATTEND Internal Medicine
DX: R53.81 Other malaise (principal); N18.4 Chronic kidney disease, stage 4 (severe); I25.10 Atherosclerotic heart disease of native coronary artery without angina pectoris; Z95.0 Presence of cardiac pacemaker; Z95.828 Presence of other vascular implants and grafts; J44.9 Chronic obstructive pulmonary disease, unspecified; I10 Essential (primary) hypertension; E11.9 Type 2 diabetes mellitus without complications; Z79.4 Long term (current) use of insulin; D63.1 Anemia in chronic kidney disease; Z79.01 Long term (current) use of anticoagulants; Z86.73 Personal history of transient ischemic attack (TIA), and cerebral infarction without residual deficits; Z86.718 Personal history of other venous thrombosis and embolism; I48.2 Chronic atrial fibrillation; M79.7 Fibromyalgia; I50.9 Heart failure, unspecified
CPT/HCPCS: 36416; 80048; 80053; 82272; 82948; 83735; 84484; 85025; 85610; 87427; 87493; 93005; 93010; 94760; 94761; 97110; 97165; 97530; 97535; 99306; 99309; 99316